=== PATIENT | male | born 1960 | race Caucasian/White ===

== ENCOUNTER 2022-12-11 09:23 | Observation (INO) ==
--- NOTE | 2022-12-11 09:38 | Emergency Department Note ---
Impression & Plan Brain TIA, Hypertension, Arm paresthesia, left ED Provider Note NAME: LIV HARDIN AGE: 62 SEX: M : 1960 ARRIVES VIA: Walk-In INFORMANT: Patient, ED PROVIDER(S): Agustin Steinberg MD CHIEF COMPLAINT: Left-sided facial and arm numbness MEDICAL DECISION MAKING: Patient presents due to concern for left-sided facial and arm numbness. IV was established blood work was obtained along with a CT of the head CT angiography of the head neck and EKG patient is currently asymptomatic. The patient's blood work shows a normal white count H&H and platelet count. Kidney function is unremarkable. BSG 162. Nonfasting. Sodium 135. Lyme is negative. The patient's CT of the head is negative. CT angiography of the head and neck shows dominant left vert with 70% stenosis of the proximal V2 segment at the level of C6. There is 50% stenosis bilaterally in the carotids. I did convey the findings to the patient was preferring to go home. ABCD 2 risk score of approximately 10% at 90 days. I did speak with on-call neurologist Dr. Su who agreed with plan of care which was a started the patient on antihypertensives, aspirin as well as statin medication. As I was preparing to discharge the patient the patient did have recurrence of his left upper extremity numbness. Given this concern he would like to stay in the hospital which I think is reasonable. The patient does not have any weakness or severe speech or facial droop. I did speak with the on-call hospitalist service Zack Brooks PA-C and the patient was admitted by Dr. Hernandez Prior /Outside records reviewed: None Differential diagnosis: Stroke, mini stroke, seizure, metabolic abnormality, infection, dehydration, hypo/hyperglycemia, electrolyte disturbance, anemia, hypoxia, cardiac sources, intracerebral event, toxicologic, neurologic, as well as other pathologies. Diagnostics, as interpreted by me: ECG: Normal sinus rhythm, rate of 68 normal intervals normal axis no ST elevations or T WI Cardiac monitoring: An order was placed for continuous cardiac monitoring. The monitor shows a rate of 72 with sinus rhythm. Patient was placed on pulse oximetry Medical decision rules: none Imaging studies: See below I informally reviewed the patient's CT of the head which shows no obvious evidence of ICH. HPI: Patient presents due to concern for numbness that he noted to the left side of his face as well as left upper extremity from the elbow down. The patient denies any prior history of TIA or stroke. No history of seizure. Patient denies any chest pains or shortness of breath. The patient did have mild left- sided headache about a week prior but has since resolved. Patient denies any blood thinner use. Patient states he is compliant with medications and has a known history of type 2 diabetes. Patient does drink 2 alcoholic beverages nightly. Patient does not binge drink. No tobacco or drug use. Patient states that his symptoms lasted approximately 20 to 30 minutes and have since resolved. Patient denies any slurred speech or facial droop. No confusion. The patient denies any abdominal pain nausea vomiting. No cough or fever. PAST MEDICAL HISTORY: See Below PAST SURGICAL HISTORY: See Below SOCIAL HISTORY: See Below HOME MEDICATIONS: See Below ALLERGIES: See Below VITALS: See Below PHYSICAL EXAMINATION: GENERAL: NAD, non-toxic. Wearing glasses. EYE EXAM: Normal conjunctiva. PERRL, no anisocoria and EOM's grossly intact w/o pain. NECK: Supple, no nuchal rigidity, no adenopathy, non-tender. No signs of meningismus. FROM of the neck with good chin to chest and neck extension. No stridor. LUNGS: Clear to auscultation. Normal chest wall mechanics. HEART: NSR, no MRG. ABDOMEN: Abdomen soft, non-tender, no masses, no rebound or guarding. BACK: No CVA TTP. SKIN: No rashes and no bruising. UPPER EXTREMITIES: Upper extremities are grossly normal. LOWER EXTREMITIES: Grossly normal, no edema. NEURO EXAM: A&O x3, cranial nerves II-XII grossly intact, normal speech, moves all 4 extremities. Good [id number], no drift and no sensory deficits Past Med/Surg History Medical History Allergic rhinitis Ascending aorta dilatation DM II (diabetes mellitus, type II), controlled HLD (hyperlipidemia) Hypertension Surgical History S/P repair of hydrocele Family History Other Cancer Heart disease Stroke Thyroid disorder Social History Smoking Status: Never smoker Hx Alcohol Use: Yes Feels Safe at Home: Yes Allergies Allergies Allergy/AdvReac Type Severity Reaction Status Date / Time No Known Allergies Allergy Unverified 12/11/22 13:10 Home Meds Home Medications Medication Instructions Recorded Confirmed empagliflozin 25 mg tablet 25 mg PO DAILY 12/11/22 12/11/22 (Jardiance) metformin 1,000 mg tablet 1,000 mg PO BID 12/11/22 12/11/22 Results & Data (ED) Vital Signs Vital Signs - 24 hr 12/11/22 09:25 12/11/22 09:42 12/11/22 12:50 Temperature 36.9 C Temperature Source Temporal Artery Scan Pulse Rate 85 77 Pulse Rate [Apical] 82 Respiratory Rate 18 18 Respiratory Effort / Characteristics Non-Labored Spontaneous Respiratory Depth Normal Respiratory Pattern Regular Blood Pressure 171/92 H Blood Pressure [Left Arm] 152/87 H Blood Pressure Mean 118 Blood Pressure Mean [Left Arm] 108 Blood Pressure Position Sitting Pulse Oximetry 97 97 Oxygen Delivery Method Room Air Room Air Sepsis Recent Fever Within 48 Hours No Sepsis New/Unexplained Change in Mental Status N/A Sepsis Action Taken by Nursing No Action Required Home Medications Current Medication List: was personally reviewed by me Laboratory Data Attestation: I reviewed the patient's lab results. 12/11/22 09:40 12/11/22 09:40 Lab Results 12/11/22 12/11/22 12/11/22 Range/Units 09:40 09:40 09:40 WBC 7.06 (4.8-10.8) K/ul RBC 5.19 (4.70-6.10) M/uL Hgb 16.1 (14.0-18.0) g/dl Hct 45.6 (42.0-52.0) % MCV 87.9 (80.0-100.0) fL MCH 31.0 (25.0-34.0) pg MCHC 35.3 (32.0-36.0) g/dL RDW Std Deviation 39.8 (36.4-46.3) fL RDW Coeff of Anjana 12.4 (11.5-14.5) % Plt Count 218 (130-400) K/uL MPV 10.5 (9.4-12.4) fL Immature Gran % (Auto) 0.3 % Neut % (Auto) 69.8 % Lymph % (Auto) 18.6 % Meeker % (Auto) 8.4 % Eos % (Auto) 1.6 % Baso % (Auto) 1.3 % Neut # (Auto) 4.94 (1.40-6.50) K/uL Lymph # (Auto) 1.31 (1.2-3.4) K/uL Meeker # (Auto) 0.59 (0.11-0.59) K/uL Eos # (Auto) 0.11 (0-0.50) K/uL Baso # (Auto) 0.09 (0-0.2) K/uL Immature Gran # (Auto) 0.02 (0.01-0.20) K/uL PT 10.2 (9.0-12.0) Seconds INR 1.0 (0.9-1.1) APTT 27.1 (21.0-31.0) Seconds PTT Ratio 1.0 Sodium 135 L (136-145) mmol/L Potassium 4.1 (3.5-5.1) mmol/L Chloride 104 (98-107) mmol/L Carbon Dioxide 23 (21-32) mmol/L Anion Gap 8 (3-11) BUN 9 (6-23) mg/dl Creatinine 0.71 (0.6-1.4) mg/dl Est Cr Clr Drug Dosing 107.9 ml/min Est GFR ( Amer) 116.5 ml/min Est GFR (Non-Af Amer) 100.6 ml/min BUN/Creatinine Ratio 12.7 (10-20) Glucose 162 H (70-99(Fasting)) mg/dl Calcium 9.0 (8.6-10.3) mg/dl Magnesium 2.1 (1.7-2.4) mg/dl Total Bilirubin 1.2 H (0.2-1.0) mg/dl AST 17 (13-39) U/L ALT 17 (7-52) U/L Alkaline Phosphatase 85 (34-104) U/L Troponin I High Sens 3.3 (0-20) pg/ml Total Protein 7.2 (6.0-8.3) gm/dl Albumin 4.4 (3.4-5.0) gm/dl Globulin 2.8 (2.5-4.0) gm/dl Albumin/Globulin Ratio 1.6 (0.9-2) Lyme Disease IgG Ab (Negative) Lyme Disease IgM Ab (Negative) SARS-CoV-2, RNA, NAAT (NEGATIVE) 12/11/22 12/11/22 Range/Units 09:40 12:45 WBC (4.8-10.8) K/ul RBC (4.70-6.10) M/uL Hgb (14.0-18.0) g/dl Hct (42.0-52.0) % MCV (80.0-100.0) fL MCH (25.0-34.0) pg MCHC (32.0-36.0) g/dL RDW Std Deviation (36.4-46.3) fL RDW Coeff of Anjana (11.5-14.5) % Plt Count (130-400) K/uL MPV (9.4-12.4) fL Immature Gran % (Auto) % Neut % (Auto) % Lymph % (Auto) % Meeker % (Auto) % Eos % (Auto) % Baso % (Auto) % Neut # (Auto) (1.40-6.50) K/uL Lymph # (Auto) (1.2-3.4) K/uL Meeker # (Auto) (0.11-0.59) K/uL Eos # (Auto) (0-0.50) K/uL Baso # (Auto) (0-0.2) K/uL Immature Gran # (Auto) (0.01-0.20) K/uL PT (9.0-12.0) Seconds INR (0.9-1.1) APTT (21.0-31.0) Seconds PTT Ratio Sodium (136-145) mmol/L Potassium (3.5-5.1) mmol/L Chloride (98-107) mmol/L Carbon Dioxide (21-32) mmol/L Anion Gap (3-11) BUN (6-23) mg/dl Creatinine (0.6-1.4) mg/dl Est Cr Clr Drug Dosing ml/min Est GFR ( Amer) ml/min Est GFR (Non-Af Amer) ml/min BUN/Creatinine Ratio (10-20) Glucose (70-99(Fasting)) mg/dl Calcium (8.6-10.3) mg/dl Magnesium (1.7-2.4) mg/dl Total Bilirubin (0.2-1.0) mg/dl AST (13-39) U/L ALT (7-52) U/L Alkaline Phosphatase (34-104) U/L Troponin I High Sens (0-20) pg/ml Total Protein (6.0-8.3) gm/dl Albumin (3.4-5.0) gm/dl Globulin (2.5-4.0) gm/dl Albumin/Globulin Ratio (0.9-2) Lyme Disease IgG Ab Negative (Negative) Lyme Disease IgM Ab Negative (Negative) SARS-CoV-2, RNA, NAAT NEGATIVE (NEGATIVE) Administered Medications Discontinued Medications Aspirin (Aspirin Chew 324 Mg) 324 mg PO NOW STA Stop: 12/11/22 12:39 Last Admin: 12/11/22 13:04 Dose: 324 mg Documented By: OL Atorvastatin Calcium (Atorvastatin 40 Mg Tab) 40 mg PO NOW STA Stop: 12/11/22 12:39 Last Admin: 12/11/22 13:20 Dose: Not Given Documented By: AM Atorvastatin Calcium (Atorvastatin 40 Mg Tab) 80 mg PO ONE ONE Stop: 12/11/22 13:22 Last Admin: 12/11/22 14:07 Dose: 80 mg Documented By: OL Ioversol (Optiray 320 500ml) 110 ml IV ONCE ONE Stop: 12/11/22 10:55 Last Admin: 12/11/22 10:54 Dose: 110 ml Documented By: EAB Imaging Data Radiologist's Impression: Head CT 12/11/22 09:47 CT head/brain wo con CLINICAL HISTORY: 62 years-old Male with neuro deficit, acute stroke suspected. Acute strokelike symptoms TECHNIQUE: Multiple axial CT images of the head were obtained without contrast. A dose lowering technique was utilized adhering to the principles of ALARA. CT DOSE: 1187.56 mGy.cm COMPARISON: None. FINDINGS: No acute intracranial hemorrhage, midline shift, intracranial mass, hydrocepha manoj, territorial ischemia or abnormal extra-axial collection. White matter hypodensities suggestive of probable chronic microvascular ischemic disease. Cerebral vascular calcifications. The calvarium is intact. The paranasal sinuses, mastoid air cells, and middle ear cavities are clear. IMPRESSION: No acute intracranial abnormality. ACT 112: Negative or not required by law. The above report was generated using voice recognition software. It may contain grammatical, syntax or spelling errors. Electronically signed by: Beto Guzman M.D. 12/11/2022 10:58 AM Head CTA 12/11/22 09:47 CT angio head w con CLINICAL HISTORY: 62 years-old Male with neuro deficit, acute stroke suspected. Acute strokelike symptoms COMPARISON STUDY: Head CT of same day TECHNIQUE: Following the IV administration of 110 cc of Optiray, CT angiogram of the brain was performed from the skull base to the vertex. Images are reviewed in the axial, sagittal, and coronal planes. 3-D MIPS images are created and assessed. IV contrast was administered without complication. All measurements were obtained according to NASCET criteria. A dose lowering technique was utilized adhering to the principles of ALARA. FINDINGS: CT ANGIOGRAM OF THE BRAIN: The imaged bilateral internal carotid arteries are patent. The bilateral anterior and middle cerebral arteries are also patent. The vertebrobasilar system and posterior cerebral arteries are widely patent. Dominant left vertebral artery. The right vertebral artery terminates in the PICA. There is no aneurysm, high-grade stenosis, or proximal branch occlusion identified. Dural sinuses appear patent. IMPRESSION: Unremarkable CTA of the head. ACT 112: Negative or not required by law. The above report was generated using voice recognition software. It may contain grammatical, syntax or spelling errors. Electronically signed by: Beto Guzman M.D. 12/11/2022 11:01 AM Neck CTA 12/11/22 09:47 CT angio neck with con CLINICAL HISTORY: 62 years-old Male with neuro deficit, acute stroke s uspected. Acute strokelike symptoms COMPARISON STUDY: CTA had of same day TECHNIQUE: Following the IV administration of 110 mL of Optiray, CT angiogram of the neck was performed from the aortic arch to the skull base. Images are reviewed in the axial, sagittal, and coronal planes. 3-D MIPS images are created and assessed. IV contrast was administered without complication. All measurements were calculated based on NASCET criteria. A dose lowering technique was utilized adhering to the principles of ALARA. FINDINGS: Three-vessel morphology of the thoracic aortic arch with mild atherosclerosis. Patency of the innominate and imaged subclavian arteries. Mild atherosclerosis of the patent common carotid arteries. Mild to moderate atherosclerotic plaque of the carotid bulbs and proximal cervical segments of the internal carotid arteries resulting in less than 50% stenosis. Dominant left vertebral artery with proximal tortuosity there is approximately 70% stenosis of the proximal V2 segment of the left vertebral artery at the level of C6 secondary to atherosc lerotic plaque. The developmentally diminutive right vertebral artery terminates into the PICA. Lung apices are clear. No pneumothorax. Unremarkable soft tissues. No acute fr acture. IMPRESSION: 1. Atherosclerotic plaque of the carotid bulbs results in less than 50% stenosis bilaterally. 2. Dominant left vertebral artery with atherosclerotic plaque within the V1 and V2 segments. There is approximately 70% stenosis of the proximal V2 segment at the level of C6. ACT 112: Negative or not required by law. The above report was generated using voice recognition software. It may contain grammatical, syntax or spelling errors. Electronically signed by: Beto Guzman M.D. 12/11/2022 11:29 AM Discharge Plan Visit Data Chief Complaint: TIA Symptoms Stated Complaint: LEFT SIDE FACIAL NUMBNESS, LEFT ARM TINGLING ED Provider: Agustin Steinberg Discharge Problem: Brain TIA, Hypertension, Arm paresthesia, left Patient Disposition: Admitted As Inpatient Condition: Good Discharge Instructions Interventions: ED Discharge Assessment Last Done: 12/11/22 15:48
[2022-12-11 10:30] LABS: Basophils # (auto) 0.09 K/uL (0-0.2); Basophils % (auto) 1.3 %; Eosinophils # (auto) 0.11 K/uL (0-0.50); Eosinophils % (auto) 1.6 %; Hematocrit (blood only) 45.6 % (42.0-52.0); Hemoglobin 16.1 g/dl (14.0-18.0); Immature Granulocytes # (auto) 0.02 K/uL (0.01-0.20); Immature Granulocytes % (auto) 0.3 %; Lymphocytes # (auto) 1.31 K/uL (1.2-3.4); Lymphocytes % (auto) 18.6 %; Mean Corpuscular Hgb Conc 35.3 g/dL (32.0-36.0); Mean Corpuscular Volume 87.9 fL (80.0-100.0); Mean Platelet Volume 10.5 fL (9.4-12.4); Monocytes # (auto) 0.59 K/uL (0.11-0.59); Monocytes % (auto) 8.4 %; Neutrophils # (auto) 4.94 K/uL (1.40-6.50); Neutrophils % (auto) 69.8 %; Platelet Count 218 K/uL (130-400); RDW Coefficient of Variation 12.4 % (11.5-14.5); RDW Standard Deviation 39.8 fL (36.4-46.3); Red Blood Count 5.19 M/uL (4.70-6.10); White Blood Count 7.06 K/ul (4.8-10.8)
[2022-12-11 10:34] LABS: Albumin Globulin Ratio 1.6 (0.9-2); Albumin Level 4.4 gm/dl (3.4-5.0); BUN Creatinine Ratio 12.7 (10-20); Bilirubin,Total 1.2 mg/dl (0.2-1.0); Creatinine Clr Calc Pharmacy 107.9 ml/min; Est GFR (African American) 116.5 ml/min; Est GFR (Non-African American) 100.6 ml/min; Globulin 2.8 gm/dl (2.5-4.0); Magnesium 2.1 mg/dl (1.7-2.4); Potassium 4.1 mmol/L (3.5-5.1); Total Protein 7.2 gm/dl (6.0-8.3)
[2022-12-11 10:40] LABS: Troponin I High Sensitivity 3.3 pg/ml (0-20)
[2022-12-11] MEDS ORDERED: OPTIRAY 320 500ml IV ONE (10:54)
--- NOTE | 2022-12-11 10:57 | Electrocardiogram Report ---
Test Reason : Blood Pressure : / mmHG Vent. Rate : 068 BPM Atrial Rate : 068 BPM P-R Int : 180 ms QRS Dur : 100 ms QT Int : 382 ms P-R-T Axes : 056 020 048 degrees QTc Int : 406 ms Normal sinus rhythm Normal ECG No previous ECGs available Confirmed by Jones Cabrera ([id number]) on 12/11/2022 10:57:17 AM Referred By: REFERRED SELF Confirmed By:Rylan Cabrera
--- NOTE | 2022-12-11 10:59 | CT Scan Report ---
CT head/brain wo con CLINICAL HISTORY: 62 years-old Male with neuro deficit, acute stroke suspected. Acute strokelike sym ptoms TECHNIQUE: Multiple axial CT images of the head were obtained without contrast. A dose lowering tech nique was utilized adhering to the principles of ALARA. CT DOSE: 1187.56 mGy.cm COMPARISON: None. FINDINGS: No acute intracranial hemorrhage, midline shift, intracranial mass, hydrocephalus, territorial ischem ia or abnormal extra-axial collection. White matter hypodensities suggestive of probable chronic micr ovascular ischemic disease. Cerebral vascular calcifications. The calvarium is intact. The paranasal sinuses, mastoid air cells, and middle ear cavities are clear . IMPRESSION: No acute intracranial abnormality. ACT 112: Negative or not required by law. The above report was generated using voice recognition software. It may contain grammatical, syntax o r spelling errors. Electronically signed by: Beto Guzman M.D. 12/11/2022 10:58 AM
[2022-12-11 11:02] LABS: Partial Thromboplastin Time 27.1 Seconds (21.0-31.0); Prothrombin Time 10.2 Seconds (9.0-12.0)
--- NOTE | 2022-12-11 11:02 | CT Scan Report ---
CT angio head w con CLINICAL HISTORY: 62 years-old Male with neuro deficit, acute stroke suspected. Acute strokelike s ymptoms COMPARISON STUDY: Head CT of same day TECHNIQUE: Following the IV administration of 110 cc of Optiray, CT angiogram of the brain was perfor med from the skull base to the vertex. Images are reviewed in the axial, sagittal, and coronal planes . 3-D MIPS images are created and assessed. IV contrast was administered without complication. All me asurements were obtained according to NASCET criteria. A dose lowering technique was utilized adherin g to the principles of ALARA. FINDINGS: CT ANGIOGRAM OF THE BRAIN: The imaged bilateral internal carotid arteries are patent. The bilateral anterior and middle cerebral arteries are also patent. The vertebrobasilar system and posterior cerebral arteries are widely herrmann nt. Dominant left vertebral artery. The right vertebral artery terminates in the PICA. There is no an eurysm, high-grade stenosis, or proximal branch occlusion identified. Dural sinuses appear patent. IMPRESSION: Unremarkable CTA of the head. ACT 112: Negative or not required by law. The above report was generated using voice recognition software. It may contain grammatical, syntax o r spelling errors. Electronically signed by: Beto Guzman M.D. 12/11/2022 11:01 AM
[2022-12-11 11:03] LABS: Lyme Ab IgG w/WB Rflx Negative (Negative); Lyme Ab IgM w/WB Rflx Negative (Negative)
--- NOTE | 2022-12-11 11:31 | CT Scan Report ---
CT angio neck with con CLINICAL HISTORY: 62 years-old Male with neuro deficit, acute stroke suspected. Acute strokelike s ymptoms COMPARISON STUDY: CTA had of same day TECHNIQUE: Following the IV administration of 110 mL of Optiray, CT angiogram of the neck was perform ed from the aortic arch to the skull base. Images are reviewed in the axial, sagittal, and coronal pl anes. 3-D MIPS images are created and assessed. IV contrast was administered without complication. Al l measurements were calculated based on NASCET criteria. A dose lowering technique was utilized adhe ring to the principles of ALARA. FINDINGS: Three-vessel morphology of the thoracic aortic arch with mild atherosclerosis. Patency of the innominate and imaged subclavian arteries. Mild atherosclerosis of the patent common c arotid arteries. Mild to moderate atherosclerotic plaque of the carotid bulbs and proximal cervical s egments of the internal carotid arteries resulting in less than 50% stenosis. Dominant left vertebral artery with proximal tortuosity there is approximately 70% stenosis of the proximal V2 segment of th e left vertebral artery at the level of C6 secondary to atherosclerotic plaque. The developmentally d iminutive right vertebral artery terminates into the PICA. Lung apices are clear. No pneumothorax. Unremarkable soft tissues. No acute fracture. IMPRESSION: 1. Atherosclerotic plaque of the carotid bulbs results in less than 50% stenosis bilaterally. 2. Dominant left vertebral artery with atherosclerotic plaque within the V1 and V2 segments. There is approximately 70% stenosis of the proximal V2 segment at the level of C6. ACT 112: Negative or not required by law. The above report was generated using voice recognition software. It may contain grammatical, syntax o r spelling errors. Electronically signed by: Beto Guzman M.D. 12/11/2022 11:29 AM
[2022-12-11] MEDS ORDERED: ATORVASTATIN 40 MG TAB PO STA (12:38)
[2022-12-11] MEDS ORDERED: ASPIRIN CHEW 324 MG PO STA (12:38)
--- NOTE | 2022-12-11 13:09 | History & Physical Report ---
Date of Service December 11, 2022 Assessment & Plan (1) Stroke-like symptom: Plan: - Admit to PCU for observation - Stroke order set completed, no indication for thrombolytic - CT head reviewed and is negative, CT angio of the neck shows Atherosclerotic plaque of the carotid bulbs results in less than 50% stenosis bilaterally. 2. Dominant left vertebral artery with atherosclerotic plaque within the V1 and V2 segments. There is approximately 70% stenosis of the proximal V2 segment at the level of C6. - MRI brain wo contrast ordered - Tele-neurology contacted by the ER- Recs aspirin and statin - Will allow permissive hypertension with SBP 140-170 - Neurology consulted - PT/OT consults placed - Allow diet if plassed bedside swallow evaluation - Checking echo - last was from 08/03/22 showing EF of 60-64%, left entricular diastolic function mildly abnormal, moderate aortic valve sclerosis is present, proximal ascending thoracic aorta is mildly enlarged at 4.1 cm. 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 - needs annual exam with diabetes (2) Hypertension: Plan: - Noted in outpatient chart but does not appear that he is on any medication - pt admits to being noncompliant with even baby aspirin - Will allow for permissive hypertension (3) HLD (hyperlipidemia): Plan: - Start atorvastatin 80 mg daily For plaque stabilization - check lipids with am labs (4) DM II (diabetes mellitus, type II), controlled: Plan: - ISS with accuchecks achs - Check A1C - Will hold metformin and jiardiance while here - Diet and exercise regimen were discussed with the patient at bedside (5) Ascending aorta dilatation: Plan: - Reviewed on last echo as above, repeat pending DVT ppx: teds, scds CODE; Full code Dispo: From home, lives with fiance, likely to remain in the hospital overnight. A total of 77 minutes were spent with greater than 50% of that time face to face with the patient, personally reviewing all current laboratories, imaging studies, past medication reconciliation, outpatient chart review, and discussion with specialists to collaborate care for the patient with attending. Please see attending documentation for corrections and/or additions. History of Present Illness Chief Complaint: Left arm and face numbness Primary Care Provider: Sam Hdz DO This is a 62-year-old male with PMHx of DM type II, ascending aortic dilation, HTN, HLD, GERD, allergic rhinitis who presents to the hospital with acute onset of left upper extremity numbness and left-sided facial numbness which occurred approximately 08:30AM today. This also involved left neck and jaw numbness, as well as not feeling well in general. He denies specific chest pain or shortness of breath during this event. It lasted about 10 minutes and then resolved by the time his co-worker got him to the ER. Similar sensation happened again this morning around 11:30A and lasted about 15 min, and is resolved at the time of my visit. He also mentions that he has had difficulty with picking up his 6-month-old grandson who weighs approximately ~20 pounds and states that he feels generalized fatigue compared to his baseline. He has not been exercising for the past 6 months. Previously liked to exercise with going on bike rides however has not been able to do so recently due to his schedule. He is a civil engineer in training and reports that at the time of his left hand/arm and jaw numbness this morning he had just read a very stressful email. He is overly stressed per his fiance who sits at bedside and supports the history. He reports having worsening left eye visual problem for the past 3 weeks not improving or worsening, no double vision or diplopia. He has a Left eye visual field deficit and for which has been present since 2009 when he was diagnosed with optic neuropathy. Pt admits to being noncompliant with medications such as baby aspirin which he was previously prescribed but takes intermittently. He also frequently forgets to take his evening dose of metformin. Allergies Allergy/AdvReac Type Severity Reaction Status Date / Time No Known Allergies Allergy Unverified 12/11/22 13:10 Home Medications Medication Instructions Recorded Confirmed Type empagliflozin 25 mg tablet 25 mg PO DAILY 12/11/22 12/11/22 History (Jardiance) metformin 1,000 mg tablet 1,000 mg PO BID 12/11/22 12/11/22 History Past Med/Surg History Medical History Allergic rhinitis Ascending aorta dilatation DM II (diabetes mellitus, type II), controlled HLD (hyperlipidemia) Hypertension Surgical History S/P repair of hydrocele Family History Other Cancer Heart disease Stroke Thyroid disorder Social History Smoking Status: Never smoker Hx Alcohol Use: Yes Alcohol type: beer Hx Substance Use: No Preferred Language: Chinese Communication Ability: Effective 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 Beliefs That Will Affect Care: None Current Living Situation: Alone Other Information That Helps Us Care for You: No Feels Safe at Home: Yes Safety Concerns: Feels Safe At This Time Assistive Devices: Glasses Review of Systems Review of Systems: Constitutional: No fever, sweats or chills Eyes: As per HPI ENT: normal hearing, no trouble swallowing Respiratory: No cough, sputum, dyspnea at rest or on exertion Cardiovascular: No chest pain, tightness or palpitations Abdomen: No pain, nausea, vomiting, diarrhea or constipation Musculoskeletal: No joint pain, calf pain, swelling Neurologic: As per HPI, No focal weakness, otherwise no numbness/tingling, or balance problems Psychiatric: No anxiety or depression Skin: No rash or itch Physical Exam Physical Exam: General: awake, alert, no apparent distress, thin Head: Normocephalic, atraumatic ENT: PERRL, EOMI, no pharyngeal exudate, mucous membranes moist Chest: Clear to auscultation, on room air, no adventitious breath sounds Cardiac: Regular rate and rhythm, no murmur, no JVD, normal peripheral pulses, good capillary refill Abdominal: NABS x 4 quadrants, soft, nondistended, nontender to palpation, no rebound or guarding Extremities: Normal inspection, no peripheral edema or erythema, calfs nontender to palpation Psych: Normal mood and affect Neuro: AAO x 3, CN II-XII are intact. Visual field deficit with left inferior field noted on exam with peripheral vision testing. Strength intact bilaterally and rated 5/5, no motor deficits, speech is clear, no peripheral sensory deficits, Neg pronator drift testing, negative [id number] testing, can perform rapid alternating movements, [id number] testing normal. Results & Data Results & Data Vital Signs (Past 12 Hours) Vital Signs Temp Pulse Pulse Resp BP BP Pulse Ox 12/11/22 12:50 82 18 152/87 H 97 12/11/22 09:42 77 12/11/22 09:25 36.9 C 85 18 171/92 H 97 O2 Del Method 12/11/22 12:50 Room Air 12/11/22 09:42 12/11/22 09:25 Room Air Laboratory Results 12/11/22 12/11/22 12/11/22 09:40 09:40 09:40 WBC RBC Hgb Hct MCV MCH MCHC RDW Std Deviation RDW Coeff of Anjana Plt Count MPV Immature Gran % (Auto) Neut % (Auto) Lymph % (Auto) [place] % (Auto) Eos % (Auto) Baso % (Auto) Neut # (Auto) Lymph # (Auto) [place] # (Auto) Eos # (Auto) Baso # (Auto) Immature Gran # (Auto) PT 10.2 INR 1.0 APTT 27.1 PTT Ratio 1.0 Sodium 135 L Potassium 4.1 Chloride 104 Carbon Dioxide 23 Anion Gap 8 BUN 9 Creatinine 0.71 Est Cr Clr Drug Dosing 107.9 Est GFR ( Amer) 116.5 Est GFR (Non-Af Amer) 100.6 BUN/Creatinine Ratio 12.7 Glucose 162 H Calcium 9.0 Magnesium 2.1 Total Bilirubin 1.2 H AST 17 ALT 17 Alkaline Phosphatase 85 Troponin I High Sens 3.3 Total Protein 7.2 Albumin 4.4 Globulin 2.8 Albumin/Globulin Ratio 1.6 Lyme Disease IgG Ab Negative Lyme Disease IgM Ab Negative 12/11/22 09:40 WBC 7.06 RBC 5.19 Hgb 16.1 Hct 45.6 MCV 87.9 MCH 31.0 MCHC 35.3 RDW Std Deviation 39.8 RDW Coeff of Anjana 12.4 Plt Count 218 MPV 10.5 Immature Gran % (Auto) 0.3 Neut % (Auto) 69.8 Lymph % (Auto) 18.6 [place] % (Auto) 8.4 Eos % (Auto) 1.6 Baso % (Auto) 1.3 Neut # (Auto) 4.94 Lymph # (Auto) 1.31 [place] # (Auto) 0.59 Eos # (Auto) 0.11 Baso # (Auto) 0.09 Immature Gran # (Auto) 0.02 PT INR APTT PTT Ratio Sodium Potassium Chloride Carbon Dioxide Anion Gap BUN Creatinine Est Cr Clr Drug Dosing Est GFR ( Amer) Est GFR (Non-Af Amer) BUN/Creatinine Ratio Glucose Calcium Magnesium Total Bilirubin AST ALT Alkaline Phosphatase Troponin I High Sens Total Protein Albumin Globulin Albumin/Globulin Ratio Lyme Disease IgG Ab Lyme Disease IgM Ab Diagnostic Findings Head CT 12/11/22 09:47 CT head/brain wo con CLINICAL HISTORY: 62 years-old Male with neuro deficit, acute stroke suspected. Acute strokelike symptoms TECHNIQUE: Multiple axial CT images of the head were obtained without contrast. A dose lowering technique was utilized adhering to the principles of ALARA. CT DOSE: 1187.56 mGy.cm COMPARISON: None. FINDINGS: No acute intracranial hemorrhage, midline shift, intracranial mass, hydrocephalus, territorial ischemia or abnormal extra-axial collection. White ma tter hypodensities suggestive of probable chronic microvascular ischemic disease. Cerebral vascular calcifications. The calvarium is intact. The paranasal sinuses, mastoid air cells, and middle ear cavities are clear. IMPRESSION: No acute intracranial abnormality. ACT 112: Negative or not required by law. The above report was generated using voice recognition software. It may contain grammatical, syntax or spelling errors. Electronically signed by: Beto Guzman M.D. 12/11/2022 10:58 AM Head CTA 12/11/22 09:47 CT angio head w con CLINICAL HISTORY: 62 years-old Male with neuro deficit, acute stroke suspected. Acute strokelike symptoms COMPARISON STUDY: Head CT of same day TECHNIQUE: Following the IV administration of 110 cc of Optiray, CT angiogram of the brain was performed from the skull base to the vertex. Images are reviewed in the axial, sagittal, and coronal planes. 3-D MIPS images are created and assessed. IV contrast was administered without complication. All measurements were obtained according to NASCET criteria. A dose lowering technique was utilized adhering to the principles of ALARA. FINDINGS: CT ANGIOGRAM OF THE BRAIN: The imaged bilateral internal carotid arteries are patent. The bilateral anterior and middle cerebral arteries are also patent. The vertebrobasilar system and posterior cerebral arteries are widely patent. Dominant left vertebral artery. The right vertebral artery terminates in the PICA. There is no aneurysm, high-grade stenosis, or proximal branch occlusion identified. Dural sinuses appear patent. IMPRESSION: Unremarkable CTA of the head. ACT 112: Negative or not required by law. The above report was generated using voice recognition software. It may contain grammatical, syntax or spelling errors. Electronically signed by: Beto Guzman M.D. 12/11/2022 11:01 AM Neck CTA 12/11/22 09:47 CT angio neck with con CLINICAL HISTORY: 62 years-old Male with neuro deficit, acute stroke suspected. Acute strokelike symptoms COMPARISON STUDY: CTA had of same day TECHNIQUE: Following the IV administration of 110 mL of Optiray, CT angiogram of the neck was performed from the aortic arch to the skull base. Images are reviewed in the axial, sagittal, and coronal planes. 3-D MIPS images are created and assessed. IV contrast was administered without complication. All measurements were calculated based on NASCET criteria. A dose lowering technique was utilized adhering to the principles of ALARA. FINDINGS: Three-vessel morphology of the thoracic aortic arch with mild atherosclerosis. Patency of the innominate and imaged subclavian arteries. Mild atherosclerosis of the patent common carotid arteries. Mild to moderate atherosclerotic plaque of the carotid bulbs and proximal cervical segments of the internal carotid arteries resulting in less than 50% stenosis. Dominant left vertebral artery with proximal tortuosity there is approximately 70% stenosis of the proximal V2 segment of the left vertebral artery at the level of C6 secondary to atherosclerotic plaque. The developmentally diminutive right vertebral artery terminates into the PICA. Lung apices are clear. No pneumothorax. Unremarkable soft tissues. No acute fracture. IMPRESSION: 1. Atherosclerotic plaque of the carotid bulbs results in less than 50% stenosis bilaterally. 2. Dominant left vertebral artery with atherosclerotic plaque within the V1 and V2 segments. There is approximately 70% stenosis of the proximal V2 segment at the level of C6. ACT 112: Negative or not required by law. The above report was generated using voice recognition software. It may contain grammatical, syntax or spelling errors. Electronically signed by: Beto Guzman M.D. 12/11/2022 11:29 AM Code Status & VTE Plan Code Status FULL code Supervising Physician Co-Signing Physician Notes Patient was seen and examined independently. Chart reviewed. Case discussed with ALEXIA
[2022-12-11] MEDS ORDERED: ATORVASTATIN 40 MG TAB PO ONE (13:21)
[2022-12-11] MEDS ORDERED: DEXTROSE 50% 50 ML SYRINGE IV PRN (17:10)
[2022-12-11] MEDS ORDERED: GLUCAGON FOR INJ 1 MG VIAL SQ PRN (17:10)
[2022-12-11] MEDS ORDERED: PHARMACIST DISCHARGE MED REC CONSULT PRN (17:10)
[2022-12-11] MEDS ORDERED: GLUCOSE 10 TAB/TUBE PO PRN (17:10)
[2022-12-11] MEDS ORDERED: CARBOHYDRATES FOR HYPOGLYCEMIA PO PRN (17:10)
[2022-12-11] MEDS ORDERED: GLUCOSE 40% GEL 15 GM TUBE PO PRN (17:10)
[2022-12-11] MEDS: INSULIN ASPART PER UNIT CHARGE SC SCH ×2 (17:30→21:00)
--- NOTE | 2022-12-11 22:22 | Magnetic Resonance Report ---
Exam(s): MRI HEAD Without Contrast EXAM: MR Head Without Intravenous Contrast CLINICAL HISTORY: Reason for exam: r/o cva. TECHNIQUE: Magnetic resonance images of the head/brain without intravenous contrast in multiple planes. COMPARISON: Comparison made to prior noncontrast head CT from December 11, 2022. FINDINGS: Brain: Mild nonspecific white matter changes. The flow voids at the base of the brain are intact. No mass. No hemorrhage. No acute infarct. Ventricles: Unremarkable. No ventriculomegaly. Bones/joints: Unremarkable. Sinuses: Unremarkable as visualized. No acute sinusitis. Mastoid air cells: Unremarkable as visualized. No mastoid effusion. Orbits: Unremarkable as visualized. IMPRESSION: No evidence of acute intra-Pathology. Mild nonspecific white matter changes. Electronically signed by: Corrina Alvarado MD 12/11/22 22:22 PM
[2022-12-12 07:46] LABS: Basophils # (auto) 0.07 K/uL (0-0.2); Eosinophils # (auto) 0.13 K/uL (0-0.50); Eosinophils % (auto) 1.9 %; Hematocrit (blood only) 43.5 % (42.0-52.0); Hemoglobin 15.7 g/dl (14.0-18.0); Immature Granulocytes # (auto) 0.01 K/uL (0.01-0.20); Immature Granulocytes % (auto) 0.1 %; Lymphocytes # (auto) 1.19 K/uL (1.2-3.4); Lymphocytes % (auto) 17.2 %; Mean Corpuscular Hemoglobin 31.2 pg (25.0-34.0); Mean Corpuscular Hgb Conc 36.1 g/dL (32.0-36.0); Mean Corpuscular Volume 86.5 fL (80.0-100.0); Mean Platelet Volume 10.4 fL (9.4-12.4); Monocytes # (auto) 0.56 K/uL (0.11-0.59); Monocytes % (auto) 8.1 %; Neutrophils # (auto) 4.94 K/uL (1.40-6.50); Neutrophils % (auto) 71.7 %; Platelet Count 198 K/uL (130-400); RDW Coefficient of Variation 12.4 % (11.5-14.5); RDW Standard Deviation 39.3 fL (36.4-46.3); Red Blood Count 5.03 M/uL (4.70-6.10)
[2022-12-12 07:57] LABS: BUN Creatinine Ratio 17.3 (10-20); Calcium 8.5 mg/dl (8.6-10.3); Chol HDL Ratio 4.3 (0-5); Creatinine Clr Calc Pharmacy 105.4 ml/min; Est GFR (African American) 113.9 ml/min; Est GFR (Non-African American) 98.3 ml/min; Potassium 4.2 mmol/L (3.5-5.1)
[2022-12-12] MEDS ORDERED: ATORVASTATIN 40 MG TAB PO SCH (09:00)
[2022-12-12] MEDS ORDERED: ASPIRIN 81 MG ECTAB PO SCH (09:00)
[2022-12-12] MEDS: INSULIN ASPART PER UNIT CHARGE SC SCH ×2 (09:10→12:54)
[2022-12-12 09:30] LABS: Estimated Average Glucose 177 mg/dl; Hemoglobin A1C 7.8 % (4.5-5.6)
--- NOTE | 2022-12-12 10:30 | Neurology Consultation ---
Date of Consultation December 12, 2022 Assessment & Plan (1) Stroke-like symptom: Plan NEUROLOGY CONSULTATION Assessment & Plan: Impression: pt with likely TIA event with minimal symptoms and left hand numbness and lip. questionable cause for left hand numbness, that may be peripheral in nature (e.g. CTS). left lip numbness however likely TIA symptom. currently doing well. mri brain negative. Recommendations: -ok for discharge from neuro stand point. no need for permissive HTN. ASA for now, no clear need for DAPT given no intracranial stenosis and low ABCD2 score. statin and LDL goal less than 70. strict DM control. call again if question. will sign off. Dr. Paul Jones MD [facility] Neurology Chief Complaint: numbness History of Present Illness: pt with essentially resolved left lip and hand numbness. left hand numbness is mostly on 1st and 2nd digits. no weakness. mri brain negative. CTA without LVO. noted for left vertebral stenosis. this morning feeling well and wants to go home. Admission/Initial HPI documentation:This is a 62-year-old male with PMHx of DM type II, ascending aortic dilation, HTN, HLD, GERD, allergic rhinitis who presents to the hospital with acute onset of left upper extremity numbness and left-sided facial numbness which occurred approximately 08:30AM today. This also involved left neck and jaw numbness, as well as not feeling well in general. He denies specific chest pain or shortness of breath during this event. It lasted about 10 minutes and then resolved by the time his co-worker got him to the ER. Similar sensation happened again this morning around 11:30A and lasted about 15 min, and is resolved at the time of my visit. He also mentions that he has had difficulty with picking up his 6-month-old grandson who weighs approximately ~20 pounds and states that he feels generalized fatigue compared to his baseline. He has not been exercising for the past 6 months. Previously liked to exercise with going on bike rides however has not been able to do so recently due to his schedule. 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 He is overly stressed per his fiance who sits at bedside and supports the history. He reports having worsening left eye visual problem for the past 3 weeks not improving or worsening, no double vision or diplopia. He has a Left eye visual field deficit and for which has been present since 2009 when he was diagnosed with optic neuropathy. Pt admits to being noncompliant with medications such as baby aspirin which he was previously prescribed but takes intermittently. He also frequently forgets to take his evening dose of metformin. Past Medical History: See chart Meds: See chart I personally reviewed all of the medications Social & Family History: See chart Review of Systems: Per initial HPI on admission. Physical Exam: GEN: NAD HEENT: Normocephalic Neuro: Mental status:A & O x 3.No dysarthria or aphasia.No neglect. Fluent speech. No apraxia Cranial Nerves:II-XII intact Motor:Normal bulk and tone,5/5 strength x 4 extremities Coordination:Intact FTN testing Reflexes:+2 throughout, down going toes janay Sensation: Intact x 4 extremities to touch with only slight decrease to touch left distal 1st and 2nd digits. Gait:intact Chart reviewed I have spent more than 50% educating patient about potential diagnosis and neurological evaluation and coordinating care with patient's treatment team. Total time spent (including chart review and coordination of care): 80 min (this includes chart review). History of Present Illness Attending Physician: Rahel Walker, Allergies Allergy/AdvReac Type Severity Reaction Status Date / Time No Known Allergies Allergy Unverified 12/11/22 13:10 Home Medications Medication Instructions Recorded Confirmed Type empagliflozin 25 mg tablet 25 mg PO DAILY 12/11/22 12/11/22 History (Jardiance) metformin 1,000 mg tablet 1,000 mg PO BID 12/11/22 12/11/22 History Patient History Medical History Allergic rhinitis Ascending aorta dilatation DM II (diabetes mellitus, type II), controlled HLD (hyperlipidemia) Hypertension Surgical History S/P repair of hydrocele Family History Other Cancer Heart disease Stroke Thyroid disorder Social History Smoking Status: Never smoker Hx Alcohol Use: Yes Alcohol type: beer Hx Substance Use: No Preferred Language: [place] Islander Communication Ability: Effective Svp Marketing Required: No Beliefs That Will Affect Care: None Current Living Situation: Alone Other Information That Helps Us Care for You: No Feels Safe at Home: Yes Safety Concerns: Feels Safe At This Time Assistive Devices: Glasses Results & Data Vital Signs (Past 12 Hours) Vital Signs Temp Pulse Pulse Resp BP BP Pulse Ox 12/12/22 08:00 97 H 12/12/22 08:11 36.5 C 69 18 146/76 H 95 12/12/22 03:20 36.8 C 64 18 148/77 H 94 12/11/22 23:43 36.7 C 62 18 127/66 96 12/11/22 23:51 66 O2 Del Method 12/12/22 08:00 12/12/22 08:11 Room Air 12/12/22 03:20 Room Air 12/11/22 23:43 Room Air 12/11/22 23:51
--- NOTE | 2022-12-12 13:14 | Discharge Summary ---
Discharge Summary Date of Service December 12, 2022 Notes For Next Care Provider Medication Changes From Visit NEW aspirin NEW atorvastatin Admission HPI Per Admitting Provider This is a 62-year-old male with PMHx of DM type II, ascending aortic dilation, HTN, HLD, GERD, allergic rhinitis who presents to the hospital with acute onset of left upper extremity numbness and left-sided facial numbness which occurred approximately 08:30AM today. This also involved left neck and jaw numbness, as well as not feeling well in general. He denies specific chest pain or shortness of breath during this event. It lasted about 10 minutes and then resolved by the time his co-worker got him to the ER. Similar sensation happened again this morning around 11:30A and lasted about 15 min, and is resolved at the time of my visit. He also mentions that he has had difficulty with picking up his 6-month-old grandson who weighs approximately ~20 pounds and states that he feels generalized fatigue compared to his baseline. He has not been exercising for the past 6 months. Previously liked to exercise with going on bike rides however has not been able to do so recently due to his schedule. He is a civil design specialist and reports that at the time of his left hand/arm and jaw numbness this morning he had just read a very stressful email. He is overly stressed per his fiance who sits at bedside and supports the history. He reports having worsening left eye visual problem for the past 3 weeks not improving or worsening, no double vision or diplopia. He has a Left eye visual field deficit and for which has been present since 2009 when he was diagnosed with optic neuropathy. Pt admits to being noncompliant with medications such as baby aspirin which he was previously prescribed but takes intermittently. He also frequently forgets to take his evening dose of metformin. Principal Dx & Hospital Course #1 = Principal Diagnosis (1) Stroke-like symptom: - Admitted to PCU for observation - Stroke order set completed, no indication for thrombolytic - CT head reviewed and is negative, CT angio of the neck shows Atherosclerotic plaque of the carotid bulbs results in less than 50% stenosis bilaterally. 2. Dominant left vertebral artery with atherosclerotic plaque within the V1 and V2 segments. There is approximately 70% stenosis of the proximal V2 segment at the level of C6. - MRI brain revealed mild nonspecific white matter changes and no specific intracranial pathology. 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 - needs annual exam with diabetes (2) Brain TIA: (3) Hypertension: - Noted in outpatient chart but does not appear that he is on any medication - pt admits to being noncompliant with even baby aspirin - Will allow for permissive hypertension (4) HLD (hyperlipidemia): - Start atorvastatin 80 mg daily For plaque stabilization - check lipids with am labs (5) DM II (diabetes mellitus, type II), controlled: - ISS with accuchecks achs - Check A1C - Will hold metformin and jiardiance while here - Diet and exercise regimen were discussed with the patient at bedside (6) Ascending aorta dilatation: - Reviewed on last echo as above, repeat pending (7) PFO (patent foramen ovale): Small PFO noted on echo. Low risk RoPE score of 3, low risk of PFO contributing to stroke. Cont management as noted above. Would recommend additional followup with neurology in 4-6 weeks for definitive plan. Discharge Exam alert and oriented mentating and ambulating at baseline. oxygenating well on room air no gross focal neurologic deficit. Updated Medication List Medication Instructions Recorded Confirmed Type empagliflozin 25 mg tablet 25 mg PO DAILY 12/11/22 12/11/22 History (Jardiance) metformin 1,000 mg tablet 1,000 mg PO BID 12/11/22 12/11/22 History aspirin 81 mg tablet,delayed 81 mg PO QAM #90 tabs 12/12/22 Rx release atorvastatin 40 mg tablet 40 mg PO HS #30 tabs 12/12/22 Rx Hospital Stay Data Consultations 12/11/22 12:38 ED Decision to Admit Stat 12/11/22 17:10 Consult Neurology Routine Diagnostic Imagining Performed 12/11/22 09:47 CT angio head w con Stat CT angio neck with con Stat CT head/brain wo con Stat 12/11/22 17:10 MR brain wo con Routine Pending Results Patient Have Any Pending Studies at Discharge: No Discharge Instructions Given to Patient (Per Discharging Provider) Please take all medications as instructed on discharge list below. It was possible that your symptoms may have been consistent with a TIA (transient ischemic attack, or "ministroke"). Neurology recommends that you take a baby aspirin (81mg) daily and a daily cholesterol medication "statin." This will help to prevent stroke in the future. It is recommended that you follow-up with your primary care physician in one week to touch base on how things are going after leaving the hospital. It was a pleasure taking care of you! Please call if you have any questions or problems. You can reach a [facility] hospitalist on duty at [facility] 24 hours a day by calling [phone]. Take care of yourself. Rahel Walker, [facility] Hospitalist Total Time Total Time Spent Total Time Spent (In Minutes): 60
--- NOTE | 2022-12-12 15:01 | Pharmacy Report ---
- Date of Service December 12, 2022 - Pharmacy CVA/TIA Medication Review Medications to Prevent Stroke handout has been added to the patients discharge packet. Antiplatelet(s) * Aspirin 81 mg Cholesterol * High intensity statin: atorvastatin 40 mg Therapeutic Anticoagulation * No history of Afib/Aflutter noted Type 2 Diabetes * Patient has T2DM and patient is prescribed Jardiance and metformin
[2022-12-12] MEDS ORDERED: STROKE PATIENT DISCHARGE STA (15:54)
--- NOTE | 2022-12-13 11:34 | Pharmacy Report ---
Pharmacist Stroke Counseling - Date of Service December 13, 2022 - Scope: Pharmacy has been consulted to provide medication discharge counseling for this patient admitted with [ischemic stroke] [hemorrhagic stroke] [transient ischemic attack] as per the Pharmacist Discharge Counseling for Stroke Patients [employer] . - Medications on Discharge: Home Medications Medication Instructions Recorded Confirmed empagliflozin 25 mg tablet 25 mg PO DAILY 12/11/22 12/11/22 (Jardiance) metformin 1,000 mg tablet 1,000 mg PO BID 12/11/22 12/11/22 New Rx's Medication Instructions Recorded aspirin 81 mg tablet,delayed 81 mg PO QAM #90 tabs 12/12/22 release atorvastatin 40 mg tablet 40 mg PO HS #30 tabs 12/12/22 - Action: The above medications, specifically ones for stroke treatment/prophylaxis, have been reviewed in detail with the patient and/or patient business center representative(s) prior to discharge. This includes indication, common adverse reactions, drug interactions, and medication administration. Medication counseling has been employed using the teach-back method to ensure understanding. - Outcome: The patient and/or patient business center representative(s) have demonstrated understanding of the medications. Additional comments: Spoke with patient over the phone regarding medication changes on discharge. Patient very knowledgeable about medications. He reports he is doing well and has no questions. He is aware to bring an updated medication list with him to his doctors visit next week. No other pertinent positives on interview. Thank you for allowing pharmacy to be involved in the care of this patient. Please call [phone] with any additional questions
== END 2022-12-12 16:53 | disposition home or self-care (01) ==
LOC: ED 09:23 → EDINP 09:23 → SUATTDRO 15:18 → EDINP 15:48 → 4W 18:27

== ENCOUNTER 2024-02-06 15:22 | Inpatient (IN) ==
--- NOTE | 2024-02-06 15:35 | ED Triage Note ---
Date of Service February 06, 2024 Provider in Triage Author: Jus Gerard History of Present Illness This patient was briefly evaluated while in triage. An abbreviated physical exam was performed. This patient is a 64-year-old Male who presents to the ED for evaluation of dizziness this week, N/T in left side of his face since last week, N/T in left fingers seen at [facility] and sent here hx of "mini stroke" 11/2022 Physical Exam GENERAL: NAD CARDIOVASCULAR: RRR RESPIRATORY: CTA NEURO: normal gait, speech clear, no facial droop Initial orders for labs and / or imaging were placed and patient was placed in the waiting area until a bed is available. Please see further documentation for the full ED course.
[2024-02-06 16:12] LABS: Basophils # (auto) 0.07 K/uL (0.00-0.20); Basophils % (auto) 0.8 %; Eosinophils # (auto) 0.18 K/uL (0.00-0.50); Hematocrit (blood only) 43.9 % (42.0-52.0); Hemoglobin 15.5 g/dl (14.0-18.0); Immature Granulocytes # (auto) 0.01 K/uL (0.01-0.20); Immature Granulocytes % (auto) 0.1 %; Lymphocytes # (auto) 1.91 K/uL (1.20-3.40); Lymphocytes % (auto) 21.6 %; Mean Corpuscular Hemoglobin 30.6 pg (25.0-34.0); Mean Corpuscular Hgb Conc 35.3 g/dL (32.0-36.0); Mean Corpuscular Volume 86.6 fL (80.0-100.0); Mean Platelet Volume 10.1 fL (9.4-12.4); Monocytes # (auto) 0.65 K/uL (0.11-0.59); Monocytes % (auto) 7.3 %; Neutrophils # (auto) 6.04 K/uL (1.40-6.50); Neutrophils % (auto) 68.2 %; Platelet Count 194 K/uL (130-400); RDW Coefficient of Variation 12.6 % (11.5-14.5); RDW Standard Deviation 39.4 fL (36.4-46.3); Red Blood Count 5.07 M/uL (4.70-6.10); White Blood Count 8.86 K/ul (4.8-10.8)
[2024-02-06 16:30] LABS: Alanine Aminotransferase 14 U/L (7-52); Albumin Globulin Ratio 1.5 (0.9-2); Albumin Level 4.6 gm/dl (3.4-5.0); Alkaline Phosphatase 76 U/L (34-104); Anion Gap 7 (3-11); Aspartate Aminotransferase 16 U/L (13-39); BUN Creatinine Ratio 23.4 (10-20); Bilirubin,Total 1.4 mg/dl (0.2-1.0); Blood Urea Nitrogen 18 mg/dl (6-23); Calcium 9.7 mg/dl (8.6-10.3); Carbon Dioxide 24 mmol/L (21-32); Chloride 104 mmol/L (98-107); Creatinine Clr Calc Pharmacy 100.1 ml/min; Est GFR (African American) 111.2 ml/min; Est GFR (Non-African American) 95.9 ml/min; Glucose 146 mg/dl (70-99(Fasting)); Magnesium 2.3 mg/dl (1.7-2.4); Sodium 135 mmol/L (136-145); Total Protein 7.6 gm/dl (6.0-8.3)
[2024-02-06 16:36] LABS: Troponin I High Sensitivity < 2.3 pg/ml (0-20)
[2024-02-06 16:42] LABS: INR 0.9 (0.9-1.1); Partial Thromboplastin Time 27 Seconds (21-31); Prothrombin Time 10.3 Seconds (9.0-12.0)
[2024-02-06] MEDS: OPTIRAY 320 150ml IV ONE (17:01)
--- NOTE | 2024-02-06 17:21 | CT Scan Report ---
CT angio neck with con, CT head/brain wo con, CT angio head w con CLINICAL HISTORY: dizziness, hx of TIA TECHNIQUE: Contiguous axial CT images of the head were acquired from the base of the skull to the momo aliza without intravenous contrast administration. CT angiography of the head and neck was performed f ollowing intravenous administration of iodinated contrast. Coronal and sagittal MIPS were obtained fr om the axial data set and were submitted for review. Automated dose lowering techniques and/or adjus tment according to patient size were utilized for this examination. All measurements were calculated based on NASCET criteria. CT DOSE: 1113.63 mGy.cm Comparison: Comparison is made to CT head and neck 02/06/2024 FINDINGS: CT head: There is no acute intracranial hemorrhage or evidence of acute territorial infarction. No sh ift of the midline structures, mass effect, or extra-axial abnormalities are shown. Lungs and soft tissues are unremarkable. CTA Neck: A 3 vessel aortic arch is shown. Atherosclerotic plaque is present in the aortic arch and at the origin of the great vessels. Redemonstration of approximately 70% stenosis of the left vertebr al artery. Right vertebral artery terminates as PICA. The left vertebral artery is dominant. CTA Head: The anterior and posterior cerebral circulations are patent. No hemodynamically significan t stenosis, aneurysm, dissection, or arteriovenous malformation is shown. IMPRESSION: 1. No acute intracranial hemorrhage, evidence of acute territorial infarction, or other acute intrac ranial disease process. 2. Again noted is approximately 70% stenosis of the proximal V2 segment of the left vertebral. 3. No occlusion, hemodynamically significant stenosis, aneurysm, dissection, or arteriovenous malfor mation in the major intracranial arteries. Assessment of stenosis of the internal carotid arteries is based on NASCET criteria. ACT 112: Negative or not required by law. Electronically signed by: Rinku Diaz M.D. 02/06/2024 5:20 PM
--- NOTE | 2024-02-06 17:42 | Emergency Department Note ---
Impression & Plan Left sided numbness, Dizziness, Acute CVA (cerebrovascular accident) ED Provider Note NAME: LIV HARDIN AGE: 64 SEX: M : 1960 ARRIVES VIA: Walk-In INFORMANT: [Patient] ED PROVIDER(S): [Regis Garcia MD] CHIEF COMPLAINT: Dizziness HISTORY OF PRESENT ILLNESS: The patient is a 64-year-old male with a history of previous CVA. The patient states that his stroke symptoms previously involved some numbness to the left face and left hand. Those symptoms eventually with time went away. In the last week, he has had recurrence of the numbness in the face and left hand. He states he has also noticed some dizziness with position change. The patient is under some increased stress right now as he just moved. His significant other does not believe he is keeping up with fluids. The patient went to the urgent care center today and was referred to the ER for the possibility of new CVA. The patient does not have fever, there has been no cough or congestion. No chest pain or shortness of breath. He states that he does have urinary urgency but this is chronic. He has not noticed any symptoms that would suggest UTI, he has no history of UTI. PMHx/PSHx/Social Hx: See Below PHYSICAL EXAM: GENERAL: Patient is in no acute distress. HEENT: No acute trauma, normocephalic atraumatic, mucous membranes moist, no nasal congestion. NECK: No stridor, no adenopathy, no meningismus, trachea is midline. LUNGS: Clear to auscultation bilaterally, no wheeze, no rhonchi, breath sounds equal. HEART: Without murmurs gallops or rubs, regular rate and rhythm. ABDOMEN: Soft, nontender, no peritonitis. EXTREMITIES: No cyanosis, full range of motion of all the joints without pain or difficulty. NEUROLOGIC: Oriented x 3, no focal weakness. No speech slur or extremity drift, excellent historian. No acute cerebellar deficit. No facial droop SKIN: No jaundice, no diaphoresis. DIFFERENTIAL DIAGNOSIS: CVA, dehydration, anemia, electrolyte imbalance, dysrhythmia, UTI, among others EMERGENCY DEPARTMENT PROCEDURES: MEDICAL DECISION MAKING: There is no leukocytosis or concerning anemia. There is a normal platelet count. No coagulopathy. No renal failure or significant electrolyte abnormality. No concerning liver enzyme elevation. The patient appeared to be in a euthyroid state. ECG showed a sinus rhythm, no ischemia or dysrhythmia. Cardiac enzyme testing x 1 was not consistent with acute cardiac injury. Urinalysis showed some potential dehydration, no infection. Brain CT showed no acute bleed or mass effect. CT angio of the head and neck were performed. He did have some stenosis but no clot seen. His imaging appeared similar to previous CT imaging. MRI of the brain did show a new CVA. On my exam, there were no focal motor deficits, no speech slur. The patient presented with a week of symptoms. He was clearly not a TNK candidate. The patient was found to have a CVA on MRI. This certainly could explain his complaints. With the new CVA, with his week of symptoms, I do think the patient a deserves a hospital stay, further workup. The patient admits that he does not always take his medications as prescribed, this certainly could be part of the issue. During the patient stay, he was given a liter of IV saline for hydration, he was given 4 baby aspirin. I spoke with case management, the on-call hospitalist was consulted. Prior/Outside records/notes reviewed: Today's notes from the urgent care center describing his presentation and the need for an ER workup. ECG per my interpretation: Indication was weakness and dizziness. The ECG shows a normal sinus rhythm with a rate of 68. There is an old septal infarct. There is no acute ST elevation, no PVCs. The QTc is 404. Continuous Cardiac Monitoring per my interpretation: An order was placed for continuous cardiac monitoring. The monitor shows a rate of 64 with normal sinus rhythm. Imaging/x-ray results per my interpretation: Chronic Medical/Social conditions affecting care: History of previous CVA. Care/Management discussed with: Case management, the on-call hospitalist. Level of care consideration(s): After review of the information above and other included data: --I believe the patient requires escalation of care to admission Critical Care Note: I have personally spent 46 minutes of critical care time in the direct management of this patient. This includes bedside care, interpretation of diagnostic studies, and testing, discussion with consultants, patient, and family members, and other required patient management activities. This 46 minutes is in excess of all separately billable procedures. DISPOSITION: Admission Past Med/Surg History Problem List (Updated 02/06/24 @ 22:55 by Regis Garcia MD) Acute CVA (cerebrovascular accident) (Acute) Dizziness (Acute) Left sided numbness (Acute) PFO (patent foramen ovale) Stroke-like symptom Hypertension (Acute) Ascending aorta dilatation HLD (hyperlipidemia) Allergic rhinitis DM II (diabetes mellitus, type II), controlled Brain TIA (Acute) Medical History Arm paresthesia, left Surgical History S/P repair of hydrocele Family History Other Cancer Heart disease Stroke Thyroid disorder Social History Smoking Status: Never smoker Hx Alcohol Use: Yes Alcohol type: beer Hx Substance Use: No Preferred Language: American Communication Ability: Effective Telemarketing Supervisor Required: No Beliefs That Will Affect Care: None Current Living Situation: Alone Feels Safe at Home: Yes Assistive Devices: None Allergies Allergies Allergy/AdvReac Type Severity Reaction Status Date / Time No Known Allergies Allergy Unverified 02/06/24 20:38 Home Meds Home Medications Medication Instructions Recorded Confirmed empagliflozin 25 mg tablet 25 mg PO DAILY 12/11/22 02/06/24 (Jardiance) metformin 1,000 mg tablet 1,000 mg PO BID 12/11/22 02/06/24 lisinopril 2.5 mg tablet 2.5 mg PO DAILY 02/06/24 02/06/24 rosuvastatin 10 mg tablet 10 mg PO DAILY 02/06/24 02/06/24 Previous Rx's Medication Instructions Recorded aspirin 81 mg tablet,delayed 81 mg PO QAM #90 tabs 12/12/22 release Results & Data (ED) Vital Signs Vital Signs - 24 hr 02/06/24 15:33 02/06/24 16:41 02/06/24 16:41 Temperature 36.7 C Temperature Source Temporal Artery Scan Pulse Rate 71 Pulse Rate [Apical] 62 Pulse Rate from SpO2 Sensor Respiratory Rate 20 15 Respiratory Effort / Characteristics Non-Labored Spontaneous Non-Labored Spontaneous Respiratory Depth Normal Normal Respiratory Pattern Regular Blood Pressure 152/87 H Blood Pressure [Right Arm] 115/73 Blood Pressure Mean 108 Blood Pressure Mean [Right Arm] 87 Blood Pressure Position [Right Arm] Lying Pulse Oximetry 97 94 95 Oxygen Delivery Method Room Air Room Air Room Air Sepsis Recent Fever Within 48 Hours No Sepsis New/Unexplained Change in Mental Status No Sepsis Action Taken by Nursing No Action Required 02/06/24 16:45 02/06/24 16:47 02/06/24 17:03 Temperature Temperature Source Pulse Rate 62 64 61 Pulse Rate [Apical] Pulse Rate from SpO2 Sensor 63 Respiratory Rate 19 18 Respiratory Effort / Characteristics Respiratory Depth Respiratory Pattern Blood Pressure Blood Pressure [Right Arm] Blood Pressure Mean Blood Pressure Mean [Right Arm] Blood Pressure Position [Right Arm] Pulse Oximetry 95 Oxygen Delivery Method Sepsis Recent Fever Within 48 Hours Sepsis New/Unexplained Change in Mental Status Sepsis Action Taken by Nursing 02/06/24 17:30 02/06/24 18:00 02/06/24 19:30 Temperature Temperature Source Pulse Rate 58 L 53 L 67 Pulse Rate [Apical] Pulse Rate from SpO2 Sensor 57 L 53 L Respiratory Rate 15 14 18 Respiratory Effort / Characteristics Respiratory Depth Respiratory Pattern Blood Pressure 161/86 H Blood Pressure [Right Arm] Blood Pressure Mean 111 Blood Pressure Mean [Right Arm] Blood Pressure Position [Right Arm] Pulse Oximetry 97 97 95 Oxygen Delivery Method Room Air Room Air Sepsis Recent Fever Within 48 Hours Sepsis New/Unexplained Change in Mental Status Sepsis Action Taken by Nursing 02/06/24 20:39 Temperature Temperature Source Pulse Rate 67 Pulse Rate [Apical] Pulse Rate from SpO2 Sensor Respiratory Rate Respiratory Effort / Characteristics Respiratory Depth Respiratory Pattern Blood Pressure Blood Pressure [Right Arm] Blood Pressure Mean Blood Pressure Mean [Right Arm] Blood Pressure Position [Right Arm] Pulse Oximetry Oxygen Delivery Method Sepsis Recent Fever Within 48 Hours Sepsis New/Unexplained Change in Mental Status Sepsis Action Taken by Residential Medications Current Medication List: was personally reviewed by me Laboratory Data Attestation: I reviewed the patient's lab results. 02/06/24 15:58 02/06/24 15:58 Lab Results 02/06/24 02/06/24 02/06/24 Range/Units 15:58 17:04 17:58 WBC 8.86 (4.8-10.8) K/ul RBC 5.07 (4.70-6.10) M/uL Hgb 15.5 (14.0-18.0) g/dl Hct 43.9 (42.0-52.0) % MCV 86.6 (80.0-100.0) fL MCH 30.6 (25.0-34.0) pg MCHC 35.3 (32.0-36.0) g/dL RDW Std Deviation 39.4 (36.4-46.3) fL RDW Coeff of Anjana 12.6 (11.5-14.5) % Plt Count 194 (130-400) K/uL MPV 10.1 (9.4-12.4) fL Immature Gran % (Auto) 0.1 % Neut % (Auto) 68.2 % Lymph % (Auto) 21.6 % Gray % (Auto) 7.3 % Eos % (Auto) 2.0 % Baso % (Auto) 0.8 % Neut # (Auto) 6.04 (1.40-6.50) K/uL Lymph # (Auto) 1.91 (1.20-3.40) K/uL Gray # (Auto) 0.65 H (0.11-0.59) K/uL Eos # (Auto) 0.18 (0.00-0.50) K/uL Baso # (Auto) 0.07 (0.00-0.20) K/uL Immature Gran # (Auto) 0.01 (0.01-0.20) K/uL PT 10.3 (9.0-12.0) Seconds INR 0.9 (0.9-1.1) APTT 27 (21-31) Seconds PTT Ratio 1.0 Sodium 135 L (136-145) mmol/L Potassium 4.0 (3.5-5.1) mmol/L Chloride 104 (98-107) mmol/L Carbon Dioxide 24 (21-32) mmol/L Anion Gap 7 (3-11) BUN 18 (6-23) mg/dl Creatinine 0.77 (0.6-1.4) mg/dl Est Cr Clr Drug Dosing 100.1 ml/min Est GFR ( Amer) 111.2 ml/min Est GFR (Non-Af Amer) 95.9 ml/min BUN/Creatinine Ratio 23.4 H (10-20) Glucose 146 H (70-99(Fasting)) mg/dl POC Glucose 131 H (70-99) mg/dl Calcium 9.7 (8.6-10.3) mg/dl Magnesium 2.3 (1.7-2.4) mg/dl Total Bilirubin 1.4 H (0.2-1.0) mg/dl AST 16 (13-39) U/L ALT 14 (7-52) U/L Alkaline Phosphatase 76 (34-104) U/L Troponin I High Sens < 2.3 (0-20) pg/ml Total Protein 7.6 (6.0-8.3) gm/dl Albumin 4.6 (3.4-5.0) gm/dl Globulin 3.0 (2.5-4.0) gm/dl Albumin/Globulin Ratio 1.5 (0.9-2) TSH 0.705 (0.300-4.500) uIu/ml Urine Color Yellow Urine Appearance Clear (Clear) Urine pH 5.5 (4.5-7.5) Ur Specific [place] > 1.045 H (1.000-1.030) Urine Protein Negative (Negative) Urine Glucose (UA) 3+ H (Negative) Urine Ketones 1+ H (Negative) Urine Blood Negative (Negative) Urine Nitrite Negative (Negative) Urine Bilirubin Negative (Negative) Urine Urobilinogen Negative (Negative) Ur Leukocyte Esterase Negative (Negative) Administered Medications Sodium Chloride (Nss) 1,000 mls @ 50 mls/hr IV .Q20H ONE Stop: 02/07/24 17:59 Last Admin: 02/06/24 22:25 Dose: 50 mls/hr Documented By: CORINNE Discontinued Medications Aspirin (Aspirin Chew 324 Mg) 324 mg PO NOW STA Stop: 02/06/24 20:54 Last Admin: 02/06/24 21:09 Dose: 324 mg Documented By: CORINNE Gadobutrol (Gadobutrol 65ml Vial) 7.5 ml IV ONCE ONE Stop: 02/06/24 19:04 Last Admin: 02/06/24 19:03 Dose: 7.5 ml Documented By: ZACH Sodium Chloride (Nss) 1,000 mls @ 999 mls/hr IV .Q1H1M ONE Stop: 02/06/24 18:31 Last Infusion: 02/06/24 19:31 Dose: Infused Documented By: Admin: 02/06/24 17:55 Dose: 999 mls/hr Documented By: CORINNE Ioversol (Optiray 320 150ml) 99 ml IV ONCE ONE Stop: 02/06/24 17:01 Last Admin: 02/06/24 17:01 Dose: 99 ml Documented By: ABIMAEL Imaging Data Radiologist's Impression: Head CT 02/06/24 15:35 CT angio neck with con, CT head/brain wo con, CT angio head w con CLINICAL HISTORY: dizziness, hx of TIA TECHNIQUE: Contiguous axial CT images of the head were acquired from the base of the skull to the vertex without intravenous contrast administration. CT angiography of the head and neck was performed following intravenous administration of iodinated contrast. Coronal and sagittal MIPS were obtained from the axial data set and were submitted for review. Automated dose lowering techniques and/or adjustment according to patient size were utilized for this examination. All measurements were calculated based on NASCET criteria. CT DOSE: 1113.63 mGy.cm Comparison: Comparison is made to CT head and neck 02/06/2024 FINDINGS: CT head: There is no acute intracranial hemorrhage or evidence of acute territorial infarction. No shift of the midline structures, mass effect, or extra-axial abnormalities are shown. Lungs and soft tissues are unremarkable. CTA Neck: A 3 vessel aortic arch is shown. Atherosclerotic plaque is present in the aortic arch and at the origin of the great vessels. Redemonstration of approximately 70% stenosis of the left vertebral artery. Right vertebral artery terminates as PICA. The left vertebral artery is dominant. CTA Head: The anterior and posterior cerebral circulations are patent. No hemodynamically significant stenosis, aneurysm, dissection, or arteriovenous malformation is shown. IMPRESSION: 1. No acute intracranial hemorrhage, evidence of acute territorial infarction, or other acute intracranial disease process. 2. Again noted is approximately 70% stenosis of the proximal V2 segment of the left vertebral. 3. No occlusion, hemodynamically significant stenosis, aneurysm, dissection, or arteriovenous malformation in the major intracranial arteries. Assessment of stenosis of the internal carotid arteries is based on NASCET criteria. ACT 112: Negative or not required by law. Electronically signed by: Rinku Diaz M.D. 02/06/2024 5:20 PM Head CTA 02/06/24 15:35 CT angio neck with con, CT head/brain wo con, CT angio head w con CLINICAL HISTORY: dizziness, hx of TIA TECHNIQUE: Contiguous axial CT images of the head were acquired from the base of the skull to the vertex without intravenous contrast administration. CT angiography of the head and neck was performed following intravenous administration of iodinated contrast. Coronal and sagittal MIPS were obtained from the axial data set and were submitted for review. Automated dose lowering techniques and/or adjustment according to patient size were utilized for this examination. All measurements were calculated based on NASCET criteria. CT DOSE: 1113.63 mGy.cm Comparison: Comparison is made to CT head and neck 02/06/2024 FINDINGS: CT head: There is no acute intracranial hemorrhage or evidence of acute territorial infarction. No shift of the midline structures, mass effect, or extra-axial abnormalities are shown. Lungs and soft tissues are unremarkable. CTA Neck: A 3 vessel aortic arch is shown. Atherosclerotic plaque is present in the aortic arch and at the origin of the great vessels. Redemonstration of approximately 70% stenosis of the left vertebral artery. Right vertebral artery terminates as PICA. The left vertebral artery is dominant. CTA Head: The anterior and posterior cerebral circulations are patent. No hemodynamically significant stenosis, aneurysm, dissection, or arteriovenous malformation is shown. IMPRESSION: 1. No acute intracranial hemorrhage, evidence of acute territorial infarction, or other acute intracranial disease process. 2. Again noted is approximately 70% stenosis of the proximal V2 segment of the left vertebral. 3. No occlusion, hemodynamically significant stenosis, aneurysm, dissection, or arteriovenous malformation in the major intracranial arteries. Assessment of stenosis of the internal carotid arteries is based on NASCET criteria. ACT 112: Negative or not required by law. Electronically signed by: Rinku Diaz M.D. 02/06/2024 5:20 PM Neck CTA 02/06/24 15:35 CT angio neck with con, CT head/brain wo con, CT angio head w con CLINICAL HISTORY: dizziness, hx of TIA TECHNIQUE: Contiguous axial CT images of the head were acquired from the base of the skull to the vertex without intravenous contrast administration. CT angiography of the head and neck was performed following intravenous administration of iodinated contrast. Coronal and sagittal MIPS were obtained from the axial data set and were submitted for review. Automated dose lowering techniques and/or adjustment according to patient size were utilized for this examination. All measurements were calculated based on NASCET criteria. CT DOSE: 1113.63 mGy.cm Comparison: Comparison is made to CT head and neck 02/06/2024 FINDINGS: CT head: There is no acute intracranial hemorrhage or evidence of acute territorial infarction. No shift of the midline structures, mass effect, or extra-axial abnormalities are shown. Lungs and soft tissues are unremarkable. CTA Neck: A 3 vessel aortic arch is shown. Atherosclerotic plaque is present in the aortic arch and at the origin of the great vessels. Redemonstration of approximately 70% stenosis of the left vertebral artery. Right vertebral artery terminates as PICA. The left vertebral artery is dominant. CTA Head: The anterior and posterior cerebral circulations are patent. No hemodynamically significant stenosis, aneurysm, dissection, or arteriovenous malformation is shown. IMPRESSION: 1. No acute intracranial hemorrhage, evidence of acute territorial infarction, or other acute intracranial disease process. 2. Again noted is approximately 70% stenosis of the proximal V2 segment of the left vertebral. 3. No occlusion, hemodynamically significant stenosis, aneurysm, dissection, or arteriovenous malformation in the major intracranial arteries. Assessment of stenosis of the internal carotid arteries is based on NASCET criteria. ACT 112: Negative or not required by law. Electronically signed by: Rinku Diaz M.D. 02/06/2024 5:20 PM Brain MRI 02/06/24 17:31 CR Exam(s): MRI HEAD W/WO Contrast IV Amt: 7.5cc gadavist EXAM: MR Head Without and With Intravenous Contrast CLINICAL HISTORY: Reason for exam: poss new stroke, hist of same. TECHNIQUE: Magnetic resonance images of the head/brain without and with intravenous contrast in multiple planes. CONTRAST: Patient received 7.5cc gadavist of IV contrast COMPARISON: CT head 02/06/24; MRI brain 12/11/22 FINDINGS: Brain: Diffusion restriction in the left anterior corpus callosum measuring 11 mm consistent with acute cerebral ischemia. No other foci of diffusion restriction. No hemorrhage or midline shift. No abnormal extra-axial fluid collection. Periventricular and deep cerebral white matter foci of FLAIR signal hyperintensity, most likely mild chronic small vessel ischemic change. No evidence of intracranial mass or abnormal enhancement. Ventricles: Unremarkable. No hydrocephalus. Bones/joints: Unremarkable. No acute fracture. Sinuses: Unremarkable as visualized. Mastoid air cells: Unremarkable as visualized. No mastoid effusion. Orbits: Unremarkable as visualized. IMPRESSION: Diffusion restriction in the left anterior corpus callosum measuring 11 mm consistent with acute cerebral ischemia. Communications: Call Doctor Stroke Electronically signed by: Pavel Jeong M.D. 02/06/24 20:24 PM Discharge Plan Visit Data Chief Complaint: Dizziness Stated Complaint: DIZZY ED Provider: Regis Garcia Discharge Problem: Left sided numbness, Dizziness, Acute CVA (cerebrovascular accident) Patient Disposition: Admitted As Inpatient Condition: Fair Forms Stand Alone Forms: [facility] Prescriptions Prescriptions: No Action metformin 1,000 mg tablet 1,000 mg PO BID Hold Instructions: Resume on 12/14/22. Jardiance 25 mg tablet 25 mg PO DAILY aspirin 81 mg Tablet,Delayed Release (Dr/Ec) 81 mg PO QAM Qty: 90 0RF lisinopril 2.5 mg tablet 2.5 mg PO DAILY rosuvastatin 10 mg tablet 10 mg PO DAILY Referrals Referrals: PCP,NO [Primary Care Provider] -
--- NOTE | 2024-02-06 17:53 | Electrocardiogram Report ---
Test Reason : Blood Pressure : / mmHG Vent. Rate : 068 BPM Atrial Rate : 068 BPM P-R Int : 178 ms QRS Dur : 088 ms QT Int : 380 ms P-R-T Axes : 037 013 052 degrees QTc Int : 404 ms Normal sinus rhythm When compared with ECG of 11-DEC-2022 09:34, No significant change was found Confirmed by Jones Cabrera ([id number]) on 02/06/2024 5:53:00 PM Referred By: Confirmed By:Rylan Cabrera
[2024-02-06] MEDS: SODIUM CHLORIDE 0.9% 1,000 ML IV ONE ×2 (17:55→22:25)
[2024-02-06 18:15] LABS: Appearance Urine Clear (Clear); Bilirubin Urine Negative (Negative); Blood Urine Negative (Negative); Color Urine Yellow; Glucose Urine UA 3+ (Negative); Ketones Urine 1+ (Negative); Leukocyte Esterase Urine Negative (Negative); Nitrite Urine Negative (Negative); Protein Urine Negative (Negative); Specific Gravity Urine > 1.045 (1.000-1.030); Urobilinogen Urine Negative (Negative); pH Urine 5.5 (4.5-7.5)
[2024-02-06] MEDS: GADOBUTROL 65ML VIAL IV ONE (19:03)
--- NOTE | 2024-02-06 20:25 | Magnetic Resonance Report ---
Exam(s): MRI HEAD W/WO Contrast IV Amt: 7.5cc gadavist EXAM: MR Head Without and With Intravenous Contrast CLINICAL HISTORY: Reason for exam: poss new stroke, hist of same. TECHNIQUE: Magnetic resonance images of the head/brain without and with intravenous contrast in multiple planes. CONTRAST: Patient received 7.5cc gadavist of IV contrast COMPARISON: CT head 02/06/24; MRI brain 12/11/22 FINDINGS: Brain: Diffusion restriction in the left anterior corpus callosum measuring 11 mm consistent with acute cerebral ischemia. No other foci of diffusion restriction. No hemorrhage or midline shift. No abnormal extra-axial fluid collection. Periventricular and deep cerebral white matter foci of FLAIR signal hyperintensity, most likely mild chronic small vessel ischemic change. No evidence of intracranial mass or abnormal enhancement. Ventricles: Unremarkable. No hydrocephalus. Bones/joints: Unremarkable. No acute fracture. Sinuses: Unremarkable as visualized. Mastoid air cells: Unremarkable as visualized. No mastoid effusion. Orbits: Unremarkable as visualized. IMPRESSION: Diffusion restriction in the left anterior corpus callosum measuring 11 mm consistent with acute cerebral ischemia. Communications: Call Doctor Stroke Electronically signed by: Pavel Jeong M.D. 02/06/24 20:24 PM
[2024-02-06] MEDS ORDERED: ASPIRIN 81 MG CHEW PO STA (20:53)
[2024-02-06] MEDS: ASPIRIN CHEW 324 MG PO STA (21:09)
--- NOTE | 2024-02-06 21:36 | History & Physical Report ---
Date of Service February 06, 2024 Assessment & Plan (1) Acute CVA (cerebrovascular accident): Plan: Recurrent CVA Erratic aspirin and statin noncompliance hypertension, elevated secondary to above hyperlipidemia, erratic statin compliance ascending aorta dilatation PFO from last year TTE DM2 on oral medications, well-controlled as of recent hemoglobin A1c of 6.03 March 2023 Medical telemetry Neurochecks Aspirin, Plavix, statin Rx Patient counseled regarding need for medication compliance. Update TTE Permissive hypertension for now Neurology consult Re: Recurrent CVA Update lipid profile and hemoglobin A1c ISS BG goal 1 10-1 40, carb count coverage DVT prophylaxis. Lovenox subcu Full code Patient partner requesting updates providers. Ms. Sintia Balderrama, contact #[phone]. Text document was generated using [employer] voice recognition software. It may contain grammatical or spelling errors. Kindly contact undersigned for clarification of any documentation item in question. History of Present Illness Chief Complaint: Left facial numbness Primary Care Provider: Dr. Amaro History obtained from patient, family, and records. Medical history significant for CVA, hypertension, hyperlipidemia, ascending aorta dilatation, PFO, DM2 on oral medications, GERD, history optic neuropathy as per records. Last confinement November 2022 for TIA presenting as transient left-sided facial numbness and left upper extremity numbness. No evidence of acute intra-Pathology, mild nonspecific white matter changes on brain MRI. Small PFO on TTE. Neurology recommended aspirin and statin on discharge. Outpatient brain MRI last December 2022 showed right parietal subacute infarct. Last week, patient noted mild numbness of the left face and left hand with some dizziness related to position change. Attributed by family to possible allergies and stress from moving to a new home. Patient admits to noncompliance with home aspirin Rx the last few weeks because he ran out. Erratic statin compliance because he forgets to take nighttime pills most of the time. Patient brought by partner to urgent care center. Patient directed to ER for further evaluation. 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, civil engineering assistant Allergies Allergy/AdvReac Type Severity Reaction Status Date / Time No Known Allergies Allergy Unverified 02/06/24 20:38 Home Medications Medication Instructions Recorded Confirmed Type empagliflozin 25 mg tablet 25 mg PO DAILY 12/11/22 02/06/24 History (Jardiance) metformin 1,000 mg tablet 1,000 mg PO BID 12/11/22 02/06/24 History aspirin 81 mg tablet,delayed 81 mg PO QAM #90 tabs 12/12/22 02/06/24 Rx release lisinopril 2.5 mg tablet 2.5 mg PO DAILY 02/06/24 02/06/24 History rosuvastatin 10 mg tablet 10 mg PO DAILY 02/06/24 02/06/24 History Past Med/Surg History Problem List (Updated 02/06/24 @ 22:55 by Regis Garcia MD) Acute CVA (cerebrovascular accident) (Acute) Dizziness (Acute) Left sided numbness (Acute) PFO (patent foramen ovale) Stroke-like symptom Hypertension (Acute) Ascending aorta dilatation HLD (hyperlipidemia) Allergic rhinitis DM II (diabetes mellitus, type II), controlled Brain TIA (Acute) Medical History Arm paresthesia, left Surgical History S/P repair of hydrocele Family History Other Cancer Heart disease Stroke Thyroid disorder Social History Smoking Status: Never smoker Hx Alcohol Use: Yes Alcohol type: beer Hx Substance Use: No Preferred Language: Occitan Communication Ability: Effective [employer]er Required: No Beliefs That Will Affect Care: None Current Living Situation: Spouse Feels Safe at Home: Yes Safety Concerns: Feels Safe At This Time Assistive Devices: None Review of Systems Review of Systems: As per HPI, all other systems reviewed and negative Physical Exam Physical Exam: GENERAL: Comfortable, pleasant, slightly anxious, no respiratory distress SKIN: Normal color, warm HEENT: Bespectacled, pink palpebral conjunctivae, no ptosis, dry buccal mucosa NECK : Supple, no tenderness CHEST : CTA, no tenderness HEART : RRR, no obvious murmurs ABDOMEN: Some distention, nontender EXTREMITIES : No LE swelling/tenderness, no other conspicuous deformities noted NEUROLOGIC : Coherent, no facial asymmetry, MMTs BUE/BLE 5/5, no other gross focality Results & Data Results & Data Vital Signs (Past 12 Hours) Vital Signs Temp Pulse Pulse Resp BP BP Pulse Ox 02/06/24 20:39 67 02/06/24 19:30 67 18 161/86 H 95 02/06/24 18:00 53 L 14 97 02/06/24 17:30 58 L 15 97 02/06/24 17:03 61 18 02/06/24 16:47 64 02/06/24 16:45 62 19 95 02/06/24 16:41 62 15 115/73 95 02/06/24 16:41 94 02/06/24 15:33 36.7 C 71 20 152/87 H 97 O2 Del Method 02/06/24 20:39 02/06/24 19:30 Room Air 02/06/24 18:00 Room Air 02/06/24 17:30 02/06/24 17:03 02/06/24 16:47 02/06/24 16:45 02/06/24 16:41 Room Air 02/06/24 16:41 Room Air 02/06/24 15:33 Room Air Laboratory Results Laboratory Results WBC 8.86 K/ul (4.8-10.8) 02/06/24 15:58 RBC 5.07 M/uL (4.70-6.10) 02/06/24 15:58 Hgb 15.5 g/dl (14.0-18.0) 02/06/24 15:58 Hct 43.9 % (42.0-52.0) 02/06/24 15:58 MCV 86.6 fL (80.0-100.0) 02/06/24 15:58 MCH 30.6 pg (25.0-34.0) 02/06/24 15:58 MCHC 35.3 g/dL (32.0-36.0) 02/06/24 15:58 RDW Std Deviation 39.4 fL (36.4-46.3) 02/06/24 15:58 RDW Coeff of Anjana 12.6 % (11.5-14.5) 02/06/24 15:58 Plt Count 194 K/uL (130-400) 02/06/24 15:58 MPV 10.1 fL (9.4-12.4) 02/06/24 15:58 Immature Gran % (Auto) 0.1 % 02/06/24 15:58 Neut % (Auto) 68.2 % 02/06/24 15:58 Lymph % (Auto) 21.6 % 02/06/24 15:58 Rice % (Auto) 7.3 % 02/06/24 15:58 Eos % (Auto) 2.0 % 02/06/24 15:58 Baso % (Auto) 0.8 % 02/06/24 15:58 Neut # (Auto) 6.04 K/uL (1.40-6.50) 02/06/24 15:58 Lymph # (Auto) 1.91 K/uL (1.20-3.40) 02/06/24 15:58 Rice # (Auto) 0.65 K/uL (0.11-0.59) H 02/06/24 15:58 Eos # (Auto) 0.18 K/uL (0.00-0.50) 02/06/24 15:58 Baso # (Auto) 0.07 K/uL (0.00-0.20) 02/06/24 15:58 Immature Gran # (Auto) 0.01 K/uL (0.01-0.20) 02/06/24 15:58 PT 10.3 Seconds (9.0-12.0) 02/06/24 15:58 INR 0.9 (0.9-1.1) 02/06/24 15:58 APTT 27 Seconds (21-31) 02/06/24 15:58 PTT Ratio 1.0 02/06/24 15:58 Sodium 135 mmol/L (136-145) L 02/06/24 15:58 Potassium 4.0 mmol/L (3.5-5.1) 02/06/24 15:58 Chloride 104 mmol/L (98-107) 02/06/24 15:58 Carbon Dioxide 24 mmol/L (21-32) 02/06/24 15:58 Anion Gap 7 (3-11) 02/06/24 15:58 BUN 18 mg/dl (6-23) 02/06/24 15:58 Creatinine 0.77 mg/dl (0.6-1.4) 02/06/24 15:58 Est Cr Clr Drug Dosing 100.1 ml/min 02/06/24 15:58 Est GFR ( Amer) 111.2 ml/min 02/06/24 15:58 Est GFR (Non-Af Amer) 95.9 ml/min 02/06/24 15:58 BUN/Creatinine Ratio 23.4 (10-20) H 02/06/24 15:58 Glucose 146 mg/dl (70-99(Fasting)) H 02/06/24 15:58 POC Glucose 131 mg/dl (70-99) H 02/06/24 17:04 Calcium 9.7 mg/dl (8.6-10.3) 02/06/24 15:58 Magnesium 2.3 mg/dl (1.7-2.4) 02/06/24 15:58 Total Bilirubin 1.4 mg/dl (0.2-1.0) H 02/06/24 15:58 AST 16 U/L (13-39) 02/06/24 15:58 ALT 14 U/L (7-52) 02/06/24 15:58 Alkaline Phosphatase 76 U/L (34-104) 02/06/24 15:58 Troponin I High Sens < 2.3 pg/ml (0-20) 02/06/24 15:58 Total Protein 7.6 gm/dl (6.0-8.3) 02/06/24 15:58 Albumin 4.6 gm/dl (3.4-5.0) 02/06/24 15:58 Globulin 3.0 gm/dl (2.5-4.0) 02/06/24 15:58 Albumin/Globulin Ratio 1.5 (0.9-2) 02/06/24 15:58 Urine Color Yellow 02/06/24 17:58 Urine Appearance Clear (Clear) 02/06/24 17:58 Urine pH 5.5 (4.5-7.5) 02/06/24 17:58 Ur Specific [place] > 1.045 (1.000-1.030) H 02/06/24 17:58 Urine Protein Negative (Negative) 02/06/24 17:58 Urine Glucose (UA) 3+ (Negative) H 02/06/24 17:58 Urine Ketones 1+ (Negative) H 02/06/24 17:58 Urine Blood Negative (Negative) 02/06/24 17:58 Urine Nitrite Negative (Negative) 02/06/24 17:58 Urine Bilirubin Negative (Negative) 02/06/24 17:58 Urine Urobilinogen Negative (Negative) 02/06/24 17:58 Ur Leukocyte Esterase Negative (Negative) 02/06/24 17:[address] 02/06/24 15:35 CT angio neck with con, CT head/brain wo con, CT angio head w con CLINICAL HISTORY: dizziness, hx of TIA TECHNIQUE: Contiguous axial CT images of the head were acquired from the base of the skull to the vertex without intravenous contrast administration. CT angiography of the head and neck was performed following intravenous administration of iodinated contrast. Coronal and sagittal MIPS were obtained from the axial data set and were submitted for review. Automated dose lowering techniques and/or adjustment according to patient size were utilized for this examination. All measurements were calculated based on NASCET criteria. CT DOSE: 1113.63 mGy.cm Comparison: Comparison is made to CT head and neck 02/06/2024 FINDINGS: CT head: There is no acute intracranial hemorrhage or evidence of acute territorial infarction. No shift of the midline structures, mass effect, or extra-axial abnormalities are shown. Lungs and soft tissues are unremarkable. CTA Neck: A 3 vessel aortic arch is shown. Atherosclerotic plaque is present in the aortic arch and at the origin of the great vessels. Redemonstration of approximately 70% stenosis of the left vertebral artery. Right vertebral artery terminates as PICA. The left vertebral artery is dominant. CTA Head: The anterior and posterior cerebral circulations are patent. No hemodynamically significant stenosis, aneurysm, dissection, or arteriovenous malformation is shown. IMPRESSION: 1. No acute intracranial hemorrhage, evidence of acute territorial infarction, or other acute intracranial disease process. 2. Again noted is approximately 70% stenosis of the proximal V2 segment of the left vertebral. 3. No occlusion, hemodynamically significant stenosis, aneurysm, dissection, or arteriovenous malformation in the major intracranial arteries. Assessment of stenosis of the internal carotid arteries is based on NASCET criteria. ACT 112: Negative or not required by law. Electronically signed by: Rinku Diaz M.D. 02/06/2024 5:20 PM Head CTA 02/06/24 15:35 CT angio neck with con, CT head/brain wo con, CT angio head w con CLINICAL HISTORY: dizziness, hx of TIA TECHNIQUE: Contiguous axial CT images of the head were acquired from the base of the skull to the vertex without intravenous contrast administration. CT angiography of the head and neck was performed following intravenous administration of iodinated contrast. Coronal and sagittal MIPS were obtained from the axial data set and were submitted for review. Automated dose lowering techniques and/or adjustment according to patient size were utilized for this examination. All measurements were calculated based on NASCET criteria. CT DOSE: 1113.63 mGy.cm Comparison: Comparison is made to CT head and neck 02/06/2024 FINDINGS: CT head: There is no acute intracranial hemorrhage or evidence of acute territorial infarction. No shift of the midline structures, mass effect, or extra-axial abnormalities are shown. Lungs and soft tissues are unremarkable. CTA Neck: A 3 vessel aortic arch is shown. Atherosclerotic plaque is present in the aortic arch and at the origin of the great vessels. Redemonstration of approximately 70% stenosis of the left vertebral artery. Right vertebral artery terminates as PICA. The left vertebral artery is dominant. CTA Head: The anterior and posterior cerebral circulations are patent. No hemodynamically significant stenosis, aneurysm, dissection, or arteriovenous malformation is shown. IMPRESSION: 1. No acute intracranial hemorrhage, evidence of acute territorial infarction, or other acute intracranial disease process. 2. Again noted is approximately 70% stenosis of the proximal V2 segment of the left vertebral. 3. No occlusion, hemodynamically significant stenosis, aneurysm, dissection, or arteriovenous malformation in the major intracranial arteries. Assessment of stenosis of the internal carotid arteries is based on NASCET criteria. ACT 112: Negative or not required by law. Electronically signed by: Rinku Diaz M.D. 02/06/2024 5:20 PM Neck CTA 02/06/24 15:35 CT angio neck with con, CT head/brain wo con, CT angio head w con CLINICAL HISTORY: dizziness, hx of TIA TECHNIQUE: Contiguous axial CT images of the head were acquired from the base of the skull to the vertex without intravenous contrast administration. CT angiography of the head and neck was performed following intravenous administration of iodinated contrast. Coronal and sagittal MIPS were obtained from the axial data set and were submitted for review. Automated dose lowering techniques and/or adjustment according to patient size were utilized for this examination. All measurements were calculated based on NASCET criteria. CT DOSE: 1113.63 mGy.cm Comparison: Comparison is made to CT head and neck 02/06/2024 FINDINGS: CT head: There is no acute intracranial hemorrhage or evidence of acute territorial infarction. No shift of the midline structures, mass effect, or extra-axial abnormalities are shown. Lungs and soft tissues are unremarkable. CTA Neck: A 3 vessel aortic arch is shown. Atherosclerotic plaque is present in the aortic arch and at the origin of the great vessels. Redemonstration of approximately 70% stenosis of the left vertebral artery. Right vertebral artery terminates as PICA. The left vertebral artery is dominant. CTA Head: The anterior and posterior cerebral circulations are patent. No hemodynamically significant stenosis, aneurysm, dissection, or arteriovenous malformation is shown. IMPRESSION: 1. No acute intracranial hemorrhage, evidence of acute territorial infarction, or other acute intracranial disease process. 2. Again noted is approximately 70% stenosis of the proximal V2 segment of the left vertebral. 3. No occlusion, hemodynamically significant stenosis, aneurysm, dissection, or arteriovenous malformation in the major intracranial arteries. Assessment of stenosis of the internal carotid arteries is based on NASCET criteria. ACT 112: Negative or not required by law. Electronically signed by: Rinku Diaz M.D. 02/06/2024 5:20 PM Brain MRI 02/06/24 17:31 CR Exam(s): MRI HEAD W/WO Contrast IV Amt: 7.5cc gadavist EXAM: MR Head Without and With Intravenous Contrast CLINICAL HISTORY: Reason for exam: poss new stroke, hist of same. TECHNIQUE: Magnetic resonance images of the head/brain without and with intravenous contrast in multiple planes. CONTRAST: Patient received 7.5cc gadavist of IV contrast COMPARISON: CT head 02/06/24; MRI brain 12/11/22 FINDINGS: Brain: Diffusion restriction in the left anterior corpus callosum measuring 11 mm consistent with acute cerebral ischemia. No other foci of diffusion restriction. No hemorrhage or midline shift. No abnormal extra-axial fluid collection. Periventricular and deep cerebral white matter foci of FLAIR signal hyperintensity, most likely mild chronic small vessel ischemic change. No evidence of intracranial mass or abnormal enhancement. Ventricles: Unremarkable. No hydrocephalus. Bones/joints: Unremarkable. No acute fracture. Sinuses: Unremarkable as visualized. Mastoid air cells: Unremarkable as visualized. No mastoid effusion. Orbits: Unremarkable as visualized. IMPRESSION: Diffusion restriction in the left anterior corpus callosum measuring 11 mm consistent with acute cerebral ischemia. Communications: Call Doctor Stroke Electronically signed by: Pavel Jeong M.D. 02/06/24 20:24 PM Diagnostic Findings EKG as per my interpretation :Rate 70, NSR, normal axis, no ischemia
[2024-02-06] MEDS ORDERED: LORazepam 0.5 MG TAB PO PRN (22:00)
[2024-02-06] MEDS ORDERED: ACETAMINOPHEN 325 MG TAB PO PRN ×2 (22:00→23:51)
[2024-02-06] MEDS ORDERED: oxyCODONE HCL IR 5 MG TAB (IMMEDIATE RELEASE) PO PRN (22:00)
[2024-02-06] MEDS ORDERED: PHARMACIST DISCHARGE MED REC CONSULT PRN (22:00)
[2024-02-06] MEDS ORDERED: PROMETHAZINE HCL 6.25 MG in SODIUM CHLORIDE 0.9% 50 ML IV PRN (22:00)
[2024-02-06 22:40] LABS: Thyroid Stimulating Hormone 0.705 uIu/ml (0.300-4.500)
[2024-02-06] MEDS: ROSUVASTATIN CALCIUM 10 MG TAB PO SCH (23:47)
[2024-02-06] MEDS ORDERED: DEXTROSE 50% 50 ML SYRINGE IV PRN (23:51)
[2024-02-06] MEDS ORDERED: GLUCOSE 10 TAB/TUBE PO PRN (23:51)
[2024-02-06] MEDS ORDERED: GLUCOSE 40% GEL 15 GM TUBE PO PRN (23:51)
[2024-02-06] MEDS ORDERED: CARBOHYDRATES FOR HYPOGLYCEMIA PO PRN (23:51)
[2024-02-06] MEDS ORDERED: GLUCAGON FOR INJ 1 MG VIAL SQ PRN (23:51)
[2024-02-07] MEDS: INSULIN ASPART PER UNIT CHARGE SC SCH (00:25)
[2024-02-07 04:30] LABS: Basophils # (auto) 0.07 K/uL (0.00-0.20); Basophils % (auto) 0.9 %; Eosinophils # (auto) 0.17 K/uL (0.00-0.50); Eosinophils % (auto) 2.2 %; Hematocrit (blood only) 42.5 % (42.0-52.0); Hemoglobin 14.5 g/dl (14.0-18.0); Immature Granulocytes # (auto) 0.02 K/uL (0.01-0.20); Immature Granulocytes % (auto) 0.3 %; Lymphocytes # (auto) 1.94 K/uL (1.20-3.40); Lymphocytes % (auto) 25.2 %; Mean Corpuscular Hemoglobin 29.7 pg (25.0-34.0); Mean Corpuscular Hgb Conc 34.1 g/dL (32.0-36.0); Mean Corpuscular Volume 87.1 fL (80.0-100.0); Monocytes % (auto) 7.8 %; Neutrophils # (auto) 4.89 K/uL (1.40-6.50); Neutrophils % (auto) 63.6 %; Platelet Count 174 K/uL (130-400); RDW Coefficient of Variation 12.4 % (11.5-14.5); RDW Standard Deviation 39.1 fL (36.4-46.3); Red Blood Count 4.88 M/uL (4.70-6.10); White Blood Count 7.69 K/ul (4.8-10.8)
[2024-02-07 04:45] LABS: BUN Creatinine Ratio 24.6 (10-20); Calcium 8.3 mg/dl (8.6-10.3); Chol HDL Ratio 3.7 (0-5); Creatinine Clr Calc Pharmacy 126.3 ml/min; Est GFR (African American) 122.3 ml/min; Est GFR (Non-African American) 105.5 ml/min; Potassium 3.9 mmol/L (3.5-5.1)
[2024-02-07] MEDS: CLOPIDOGREL BISULFATE 75 MG TAB PO STA (06:10)
[2024-02-07 07:00] LABS: Estimated Average Glucose 192 mg/dl; Hemoglobin A1C 8.3 % (4.5-5.6)
[2024-02-07] MEDS ORDERED: ASPIRIN 81 MG ECTAB PO SCH (09:00)
[2024-02-07] MEDS: ASPIRIN 81 MG ECTAB PO SCH (09:42)
[2024-02-07] MEDS: ENOXAPARIN INJ 40 MG/0.4 ML SYR SQ SCH (09:43)
[2024-02-07] MEDS: ROSUVASTATIN CALCIUM 10 MG TAB PO SCH (09:43)
--- NOTE | 2024-02-07 14:43 | Pharmacy Report ---
- Date of Service February 07, 2024 - Pharmacy CVA/TIA Medication Review Medications to Prevent Stroke handout has been added to the patients discharge packet. Antiplatelet(s) * Aspirin 81 mg PO daily and Plavix 75 mg PO daily Cholesterol * Rosuvastatin 10 mg PO daily. Not at high intensity statin dose but LDL = 85 mg/dl and patient has history of non-compliance DVT Prophylaxis * Enoxaparin SQ Therapeutic Anticoagulation * No history of Afib/Aflutter noted Type 2 Diabetes * Patient has T2DM and patient is prescribed empagliflozin
--- NOTE | 2024-02-07 16:12 | Hospitalist Progress Note ---
Date of Service February 07, 2024 Assessment & Plan (1) Acute CVA (cerebrovascular accident): Plan: Recurrent CVA inconsistent aspirin and statin Adherence Brain MRI: Diffusion restriction in the left anterior corpus callosum measuring 11 mm consistent with acute cerebral ischemia. CT angiogram head and neck: 1. No acute intracranial hemorrhage, evidence of acute territorial infarction, or other acute intracranial disease process. 2. Again noted is approximately 70% stenosis of the proximal V2 segment of the left vertebral. 3. No occlusion, hemodynamically significant stenosis, aneurysm, dissection, or arteriovenous malformation in the major intracranial arteries. Echocardiogram: Pending Plavix added to aspirin Crestor continued Consulted neurology PT and OT evaluation hypertension - Improving Monitor hyperlipidemia, erratic statin compliance ascending aorta dilatation PFO from last year TTE DM2 on oral medications, well-controlled as of recent hemoglobin A1c of 6.03 March 2023 -- A1c 8.3 Update lipid profile and hemoglobin A1c ISS BG goal 1 10-1 40, carb count coverage DVT prophylaxis. Lovenox subcu Full code Disposition Pending Lives at home with family Admission and Anticipated Discharge Date Admission Date: February 06, 2024 Subjective Follow-up for acute CVA, etc. Seen resting in bed, comfortable, not in distress States he feels fine overall Left facial numbness/tingling, left hand tingling sensation mostly resolving Dizziness also resolved No other new neurologic symptoms No chest pain, palpitations, dizziness, shortness of breath No other new symptoms Review of Systems Review of Systems: all noted and negative except for above Physical Exam Physical Exam: General- oriented x 3, not in distress, speaks in sentences with no effort or accessory muscle use Eyes- anicteric Neck- no JVD Lungs- clear breath sounds bilaterally, no rales/wheezes Heart- normal rate, regular rhythm; no murmurs Abdomen- normal bowel sounds, nondistended, soft, nontender Extremities- no pretibial edema, no calf tenderness Neuro- alert, oriented x 3; no gross focal neurologic deficits Skin- warm & dry Results & Data Results & Data Vital Signs (Past 12 Hours) Vital Signs Temp Pulse Pulse Resp BP BP Pulse Ox 02/07/24 10:24 02/07/24 09:00 71 17 140/83 96 02/07/24 08:09 64 14 96 02/07/24 07:06 61 13 95 02/07/24 07:04 63 02/07/24 06:30 36.7 C 64 15 125/74 97 02/07/24 05:00 57 L 16 132/79 95 Pulse Ox O2 Del Method O2 Flow Rate 02/07/24 10:24 95 0 02/07/24 09:00 02/07/24 08:09 02/07/24 07:06 02/07/24 07:04 02/07/24 06:30 Room Air 02/07/24 05:00 Room Air all noted and reviewed including below
--- NOTE | 2024-02-07 16:41 | Neurology Consultation ---
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 Episodes of dizziness might be attributed to vertebral stenosis in the setting of hypoperfusion. Plan Recommend aspirin 325 mg in addition to Plavix 75 mg plus atorvastatin 80 mg for 21 days. This could be de-escalated to aspirin 325 mg in addition to atorvastatin 80 mg afterwards. Recommend echocardiogram. Recommend a Zio patch upon discharge. Check lipid profile, hemoglobin A1c, TSH. Rule out underlying infections. Telehealth Consultation Telehealth Information Telehealth Information: I performed this visit using a real-time telehealth connection between my location and the patients location ([facility]). After connecting through interactive tele-video, patient was identified by name and date of and/or wristband check.Patient (or authorized healthcare bilingual inside sales representative) was informed that this was a telemedicine visit and it was being conducted confidentially over secure lines. My office door was closed and no one else was present in the room with me.Patient (or authorized healthcare bilingual inside sales representative) provided consent to proceed with the visit, expressed an understanding of privacy and security of the telemedicine visit, and gave permission to have a hospital bilingual inside sales representative in the room in order to assist with the visit and to conduct portions of the visit, as needed. I informed the patient (or authorized healthcare bilingual inside sales representative) that I reviewed their record and presented the opportunity for them to ask any questions regarding the visit today. The patient agreed to participate. History of Present Illness Reason for Consultation: Stroke Requesting Physician: Chaz Cai MD Attending Physician: Chaz Cai MD History of Present Illness Jerry Ahuja is a 64-year-old male patient with PMH of HTN, DM type II, HLP, ascending aortic dilatation, history of a stroke prior metastatic left- sided numbness in 2022. The patient presented to the hospital with recurrent episodes of dizziness whenever he is bending over to pick something from the floor, he thought this was related to allergies. But then he noticed that the left facial numbness and left arm numbness or present again. The patient has not been taking his aspirin or statin over the past several months. Is been taking the rest of his medications. He denies any visual changes denies any difficulties with gait or motor weakness. Admits to some word finding difficulty that is now improved. No recent illnesses. Allergies Allergy/AdvReac Type Severity Reaction Status Date / Time No Known Allergies Allergy Unverified 02/06/24 20:38 Home Medications Medication Instructions Recorded Confirmed Type empagliflozin 25 mg tablet 25 mg PO DAILY 12/11/22 02/06/24 History (Jardiance) metformin 1,000 mg tablet 1,000 mg PO BID 12/11/22 02/06/24 History aspirin 81 mg tablet,delayed 81 mg PO QAM #90 tabs 12/12/22 02/06/24 Rx release lisinopril 2.5 mg tablet 2.5 mg PO DAILY 02/06/24 02/06/24 History rosuvastatin 10 mg tablet 10 mg PO DAILY 02/06/24 02/06/24 History Patient History Medical History Arm paresthesia, left Surgical History S/P repair of hydrocele Family History Other Cancer Heart disease Stroke Thyroid disorder Social History Smoking Status: Never smoker Hx Alcohol Use: Yes Alcohol type: beer Hx Substance Use: No Preferred Language: Latvian Communication Ability: Effective 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 Beliefs That Will Affect Care: None Current Living Situation: Spouse Feels Safe at Home: Yes Safety Concerns: Feels Safe At This Time Assistive Devices: None Review of Systems Constitutional: Patient denies weight loss, fever, chills, and night sweats Eyes: Patient denies change in vision, tearing, pain, and redness ENT: Patient denies pain, bleeding, rhinorrhea, and dysphagia Cardiovascular: Patient denies chest pain, palpitation, dyspnea at rest, and dyspnea with exertion Respiratory: Patient denies shortness of breath, cough, wheezing, and productive cough GI: Patient denies reflux, pain, constipation, and diarrhea Skin: Patient denies rash, dryness, and itching Allergies/Immune System: Patient denies rhinorrhea, seasonal allergies, reaction to current MEDS, and joint swelling Endocrine: Patient denies weight loss, weight gain, temperature intolerance, and excessive thirst Neurological: All negative unless mentioned in the HPI Physical Exam General Constitutional: Appearance normally developed Head and face: normocephalic and atraumatic Eyes: no ptosis, no anisocoria, and no dysconjugate gaze Respiratory: normal effort Cardiovascular: regular rhythm and regular rate Abdomen: non distended Skin: no rashes, lesions, or ulcers noted Psychiatric: normal judgement and insight, normal mood, and normal affect NEUROLOGIC EXAMINATION: Mental Status:alert, oriented to time, place, person, normal recent memory, normal remote memory, normal attention span, normal concentration, normal language and normal fund of knowledge Cranial Nerves: CN 2 - no visual defect on confrontation and pupils round, equal, reactive to light CN 3, 4, 6 - extra-ocular movements intact and no nystagmus CN 5 - facial sensation intact CN 7 - no facial asymmetry CN 8 - intact hearing CN 9, 10 - palate symmetric, normal gag CN 11 - good shoulder shrug CN 12 - tongue midline MOTOR: Strength was at least antigravity throughout, Pronator drift was absent and There were no abnormal movements SENSATION:decreased sensation over the left face and left hand GAIT: stable, no ataxia and can perform tandem walking COORDINATION: no ataxia with finger to nose testing and heel to painter testing REFLEXES: cannot assess over telemedicine NIH Stroke Scale: 1a. Level of Consciousness: alert = 0 1b. LOC Questions: (month, age): both correct = 0 1c. LOC Commands (open and close eyes, make fist and let go using non-paretic hand): obeys both correctly = 0 2. Best Gaze (eyes open and patient follows examiner's finger or face): normal = 0 3. Visual (visual threat or finger counting in each quadrant): no loss = 0 4. Facial Palsy (show teeth, raise eye brows and squeeze eyes shut, or grimace symmetry in a comatose patient): normal = 0 5a. Motor Arm (extend arm (palms down) to 90 degrees and score drift/movement (10 seconds) - Left: no drift = 0 5b. Motor Arm: (extend arm (palms down) to 90 degrees and score drift/movement (10 seconds) - Right: no drift = 0 6a. Motor Leg (elevate leg 30 degrees and score drift/ movement (5 seconds) - Left: no drift = 0 6b. Motor Leg (elevate leg 30 degrees and score drift/ movement (5 seconds) - Right: no drift = 0 7. Limb Ataxia (finger to nose, heel down painter): absent = 0 8. Sensory (pin prick to face, arm, trunk and leg, compare side to side): normal = 1 9. Best Language: no aphasia = 0 10. Dysarthria (evaluate speech clarity by patient repeating listed words): normal articulation = 0 11. Extinction and Inattention: no neglect = 0 Total: 1 Results & Data Vital Signs (Past 12 Hours) Vital Signs Temp Pulse Pulse Resp BP BP Pulse Ox 02/07/24 10:24 02/07/24 09:00 71 17 140/83 96 02/07/24 08:09 64 14 96 02/07/24 07:06 61 13 95 02/07/24 07:04 63 02/07/24 06:30 36.7 C 64 15 125/74 97 02/07/24 05:00 57 L 16 132/79 95 Pulse Ox O2 Del Method O2 Flow Rate 02/07/24 10:24 95 0 02/07/24 09:00 02/07/24 08:09 02/07/24 07:06 02/07/24 07:04 02/07/24 06:30 Room Air 02/07/24 05:00 Room Air Laboratory Results Laboratory Results - last 24 hr 02/06/24 02/06/24 02/06/24 15:58 17:04 17:58 WBC RBC Hgb Hct MCV MCH MCHC RDW Std Deviation RDW Coeff of Anjana Plt Count MPV Immature Gran % (Auto) Neut % (Auto) Lymph % (Auto) [place] % (Auto) Eos % (Auto) Baso % (Auto) Neut # (Auto) Lymph # (Auto) [place] # (Auto) Eos # (Auto) Baso # (Auto) Immature Gran # (Auto) Sodium Potassium Chloride Carbon Dioxide Anion Gap BUN Creatinine Est Cr Clr Drug Dosing Est GFR ( Amer) Est GFR (Non-Af Amer) BUN/Creatinine Ratio Glucose POC Glucose 131 H Estimat Average Glucose Hemoglobin A1c Calcium Triglycerides Cholesterol LDL Cholesterol, Calc VLDL Cholesterol, Calc HDL Cholesterol Cholesterol/HDL Ratio TSH 0.705 Urine Color Yellow Urine Appearance Clear Urine pH 5.5 Ur Specific [place] > 1.045 H Urine Protein Negative Urine Glucose (UA) 3+ H Urine Ketones 1+ H Urine Blood Negative Urine Nitrite Negative Urine Bilirubin Negative Urine Urobilinogen Negative Ur Leukocyte Esterase Negative 02/06/24 02/07/24 02/07/24 23:57 04:16 08:18 WBC 7.69 RBC 4.88 Hgb 14.5 Hct 42.5 MCV 87.1 MCH 29.7 MCHC 34.1 RDW Std Deviation 39.1 RDW Coeff of Anjana 12.4 Plt Count 174 MPV 10.0 Immature Gran % (Auto) 0.3 Neut % (Auto) 63.6 Lymph % (Auto) 25.2 [place] % (Auto) 7.8 Eos % (Auto) 2.2 Baso % (Auto) 0.9 Neut # (Auto) 4.89 Lymph # (Auto) 1.94 [place] # (Auto) 0.60 H Eos # (Auto) 0.17 Baso # (Auto) 0.07 Immature Gran # (Auto) 0.02 Sodium 137 Potassium 3.9 Chloride 106 Carbon Dioxide 22 Anion Gap 9 BUN 15 Creatinine 0.61 Est Cr Clr Drug Dosing 126.3 Est GFR ( Amer) 122.3 Est GFR (Non-Af Amer) 105.5 BUN/Creatinine Ratio 24.6 H Glucose 92 POC Glucose 112 H 90 Estimat Average Glucose 192 Hemoglobin A1c 8.3 H Calcium 8.3 L Triglycerides 118 Cholesterol 150 LDL Cholesterol, Calc 85 VLDL Cholesterol, Calc 24 HDL Cholesterol 41 Cholesterol/HDL Ratio 3.7 TSH Urine Color Urine Appearance Urine pH Ur Specific [place] Urine Protein Urine Glucose (UA) Urine Ketones Urine Blood Urine Nitrite Urine Bilirubin Urine Urobilinogen Ur Leukocyte Esterase 02/07/24 12:14 WBC RBC Hgb Hct MCV MCH MCHC RDW Std Deviation RDW Coeff of Anjana Plt Count MPV Immature Gran % (Auto) Neut % (Auto) Lymph % (Auto) [place] % (Auto) Eos % (Auto) Baso % (Auto) Neut # (Auto) Lymph # (Auto) [place] # (Auto) Eos # (Auto) Baso # (Auto) Immature Gran # (Auto) Sodium Potassium Chloride Carbon Dioxide Anion Gap BUN Creatinine Est Cr Clr Drug Dosing Est GFR ( Amer) Est GFR (Non-Af Amer) BUN/Creatinine Ratio Glucose POC Glucose 137 H Estimat Average Glucose Hemoglobin A1c Calcium Triglycerides Cholesterol LDL Cholesterol, Calc VLDL Cholesterol, Calc HDL Cholesterol Cholesterol/HDL Ratio TSH Urine Color Urine Appearance Urine pH Ur Specific [place] Urine Protein Urine Glucose (UA) Urine Ketones Urine Blood Urine Nitrite Urine Bilirubin Urine Urobilinogen Ur Leukocyte Esterase Diagnostic Findings Head CT 02/06/24 15:35 CT angio neck with con, CT head/brain wo con, CT angio head w con CLINICAL HISTORY: dizziness, hx of TIA TECHNIQUE: Contiguous axial CT images of the head were acquired from the base of the skull to the vertex without intravenous contrast administration. CT angiography of the head and neck was performed following intravenous administration of iodinated contrast. Coronal and sagittal MIPS were obtained from the axial data set and were submitted for review. Automated dose lowering techniques and/or adjustment according to patient size were utilized for this examination. All measurements were calculated based on NASCET criteria. CT DOSE: 1113.63 mGy.cm Comparison: Comparison is made to CT head and neck 02/06/2024 FINDINGS: CT head: There is no acute intracranial hemorrhage or evidence of acute territorial infarction. No shift of the midline structures, mass effect, or extra-axial abnormalities are shown. Lungs and soft tissues are unremarkable. CTA Neck: A 3 vessel aortic arch is shown. Atherosclerotic plaque is present in the aortic arch and at the origin of the great vessels. Redemonstration of approximately 70% stenosis of the left vertebral artery. Right vertebral artery terminates as PICA. The left vertebral artery is dominant. CTA Head: The anterior and posterior cerebral circulations are patent. No hemodynamically significant stenosis, aneurysm, dissection, or arteriovenous malformation is shown. IMPRESSION: 1. No acute intracranial hemorrhage, evidence of acute territorial infarction, or other acute intracranial disease process. 2. Again noted is approximately 70% stenosis of the proximal V2 segment of the left vertebral. 3. No occlusion, hemodynamically significant stenosis, aneurysm, dissection, or arteriovenous malformation in the major intracranial arteries. Assessment of stenosis of the internal carotid arteries is based on NASCET criteria. ACT 112: Negative or not required by law. Electronically signed by: Rinku Diaz M.D. 02/06/2024 5:20 PM Head CTA 02/06/24 15:35 CT angio neck with con, CT head/brain wo con, CT angio head w con CLINICAL HISTORY: dizziness, hx of TIA TECHNIQUE: Contiguous axial CT images of the head were acquired from the base of the skull to the vertex without intravenous contrast administration. CT angiography of the head and neck was performed following intravenous administration of iodinated contrast. Coronal and sagittal MIPS were obtained from the axial data set and were submitted for review. Automated dose lowering techniques and/or adjustment according to patient size were utilized for this examination. All measurements were calculated based on NASCET criteria. CT DOSE: 1113.63 mGy.cm Comparison: Comparison is made to CT head and neck 02/06/2024 FINDINGS: CT head: There is no acute intracranial hemorrhage or evidence of acute terr itorial infarction. No shift of the midline structures, mass effect, or extra- axial abnormalities are shown. Lungs and soft tissues are unremarkable. CTA Neck: A 3 vessel aortic arch is shown. Atherosclerotic plaque is present in the aortic arch and at the origin of the great vessels. Redemonstration of approximately 70% stenosis of the left vertebral artery. Right vertebral artery terminates as PICA. The left vertebral artery is dominant. CTA Head: The anterior and posterior cerebral circulations are patent. No hemodynamically significant stenosis, aneurysm, dissection, or arteriovenous malformation is shown. IMPRESSION: 1. No acute intracranial hemorrhage, evidence of acute territorial infarction, or other acute intracranial disease process. 2. Again noted is approximately 70% stenosis of the proximal V2 segment of the left vertebral. 3. No occlusion, hemodynamically significant stenosis, aneurysm, dissection, or arteriovenous malformation in the major intracranial arteries. Assessment of stenosis of the internal carotid arteries is based on NASCET criteria. ACT 112: Negative or not required by law. Electronically signed by: Rinku Diaz M.D. 02/06/2024 5:20 PM Neck CTA 02/06/24 15:35 CT angio neck with con, CT head/brain wo con, CT angio head w con CLINICAL HISTORY: dizziness, hx of TIA TECHNIQUE: Contiguous axial CT images of the head were acquired from the base of the skull to the vertex without intravenous contrast administration. CT angiography of the head and neck was performed following intravenous admini stration of iodinated contrast. Coronal and sagittal MIPS were obtained from the axial data set and were submitted for review. Automated dose lowering techniques and/or adjustment according to patient size were utilized for this examination. All measurements were calculated based on NASCET criteria. CT DOSE: 1113.63 mGy.cm Comparison: Comparison is made to CT head and neck 02/06/2024 FINDINGS: CT head: There is no acute intracranial hemorrhage or evidence of acute territorial infarction. No shift of the midline structures, mass effect, or extra-axial abnormalities are shown. Lungs and soft tissues are unremarkable. CTA Neck: A 3 vessel aortic arch is shown. Atherosclerotic plaque is present in the aortic arch and at the origin of the great vessels. Redemonstration of approximately 70% stenosis of the left vertebral artery. Right vertebral artery terminates as PICA. The left vertebral artery is dominant. CTA Head: The anterior and posterior cerebral circulations are patent. No hemodynamically significant stenosis, aneurysm, dissection, or arteriovenous malformation is shown. IMPRESSION: 1. No acute intracranial hemorrhage, evidence of acute territorial infarction, or other acute intracranial disease process. 2. Again noted is approximately 70% stenosis of the proximal V2 segment of the left vertebral. 3. No occlusion, hemodynamically significant stenosis, aneurysm, dissection, or arteriovenous malformation in the major intracranial arteries. Assessment of stenosis of the internal carotid arteries is based on NASCET criteria. ACT 112: Negative or not required by law. Electronically signed by: Rinku Diaz M.D. 02/06/2024 5:20 PM Brain MRI 02/06/24 17:31 CR Exam(s): MRI HEAD W/WO Contrast IV Amt: 7.5cc gadavist EXAM: MR Head Without and With Intravenous Contrast CLINICAL HISTORY: Reason for exam: poss new stroke, hist of same. TECHNIQUE: Magnetic resonance images of the head/brain without and with intravenous contrast in multiple planes. CONTRAST: Patient received 7.5cc gadavist of IV contrast COMPARISON: CT head 02/06/24; MRI brain 12/11/22 FINDINGS: Brain: Diffusion restriction in the left anterior corpus callosum measuring 11 mm consistent with acute cerebral ischemia. No other foci of diffusion restriction. No hemorrhage or midline shift. No abnormal extra-axial fluid collection. Periventricular and deep cerebral white matter foci of FLAIR signal hyperintensity, most likely mild chronic small vessel ischemic change. No evidence of intracranial mass or abnormal enhancement. Ventricles: Unremarkable. No hydrocephalus. Bones/joints: Unremarkable. No acute fracture. Sinuses: Unremarkable as visualized. Mastoid air cells: Unremarkable as visualized. No mastoid effusion. Orbits: Unremarkable as visualized. IMPRESSION: Diffusion restriction in the left anterior corpus callosum measuring 11 mm consistent with acute cerebral ischemia. Communications: Call Doctor Stroke Electronically signed by: Pavel Jeong M.D. 02/06/24 20:24 PM Medications Administered Home Medications Medication Instructions Recorded Confirmed Last Taken empagliflozin 25 mg tablet 25 mg PO DAILY 12/11/22 02/06/24 02/06/24 (Jardiance) metformin 1,000 mg tablet 1,000 mg PO BID 12/11/22 02/06/24 02/06/24 aspirin 81 mg tablet,delayed 81 mg PO QAM #90 tabs 12/12/22 02/06/24 02/06/24 release lisinopril 2.5 mg tablet 2.5 mg PO DAILY 02/06/24 02/06/24 02/06/24 rosuvastatin 10 mg tablet 10 mg PO DAILY 02/06/24 02/06/24 02/06/24 Active Medications Generic Name Dose Route Start Last Admin Trade Name Janes PRN Reason Stop Dose Admin Aspirin 81 mg 02/07/24 09:00 02/07/24 09:42 Aspirin 81 Mg Ectab PO 03/08/24 08:59 81 mg QAM JAKE Administration Enoxaparin Sodium 40 mg 02/07/24 09:00 02/07/24 09:43 Enoxaparin Inj 40 Mg/0.4 Ml Syr SQ 03/08/24 08:59 40 mg QAM JAKE Administration Insulin Aspart 0 units 02/06/24 23:51 02/07/24 13:35 Insulin Aspart Per Unit Charge SC 03/07/24 23:50 5 units ACHS JAKE Administration Rosuvastatin Calcium 10 mg 02/07/24 09:00 02/07/24 09:43 Rosuvastatin Calcium 10 Mg Tab PO 03/08/24 08:59 10 mg DAILY JAKE Administration ECG Additional Comments: NSR
[2024-02-07] MEDS: ASPIRIN 81 MG ECTAB PO ONE (19:38)
--- OUTSIDE RECORDS SUMMARY | 2024-02-07 21:10 | External Medical Summary | Summary of Care ---
Author Name Unknown Organization [facility] [address] [place] [place] [address] Phone [phone] Care Team Providers Care Client Manager Name Role Phone Unavailable Primary Care Provider Unavailabl e Reason for Visit * Reason Comments Congestion Sinus Problem X's 2 weeks, mucous just turned green this week. Cough Sore Throat Scratchy throat Encounter Details Date Type Department Care Team (Late st Contact Info) Description 09/12/2023 11:40 AM EST Office Visit General Internal Medicine [facility] [address] [facility] [place] [address] Va Amaro MD [address] [facility] [place] [address] Acute non-recurrent frontal sinusitis*; Ascending aorta dilation (HCC); Seasonal allergic rhinitis due to pollen; Dyslipidemia, goal LDL below 100; Cerebrovascular disease, arteriosclerotic, post-stroke; HTN, goal below 140/90; Gastroesophageal reflux disease with esophagitis, unspecified whether hemorrhage; Type 2 diabetes mellitus without complication, without long-term current use of insulin (HCC); Type 2 diabetes mellitus with microalbuminuria, without long-term current use of insulin (HCC) Allergies Active Allergy Reactions Criticality Noted Date Comments No Known Drug Allergy 06/19/2004 documented as of this encounter (statuses as of 09/24/2023) Medications Medication Sig Dispensed Refills Start Date End Date Status Aspirin Low Dose 81 MG Oral Tablet Delayed Release Take 1 Tablet by mouth in the morning. In the morning.. 0 12/12/2022 Active Lisinopril 2.5 MG Oral Tablet (Prinivil)Indicatio ns:Microalbuminuria due to type 2 diabetes mellitus (HCC) Take 1 Tablet by mouth in the morning. 90 Tablet 3 03/19/2023 Active Rosuvastatin Calcium 20 MG Oral Tablet (Crestor)Indication s:Cerebrovascular disease, arteriosclerotic, post-stroke,Dyslipi demia, goal LDL below 70 Take 1 Tablet by mouth in the morning. 90 Tablet 3 03/19/2023 Active metFORMIN HCl 1000 MG Oral Tablet (Glucophage)Indicat ions:Overweight (BMI 25.0-29.9) take 1 tablet by mouth every morning and evening with meals 180 Tablet 3 03/23/2023 Active Jardiance 25 MG Oral Tablet (Empagliflozin)Josephine cations:Type 2 diabetes mellitus with microalbuminuria, without long-term current use of insulin (HCC),Type 2 diabetes mellitus with hyperglycemia, without long-term current use of insulin (HCC) take 1 tablet by mouth once daily 90 Tablet 3 03/23/2023 Active Amoxicillin 500 MG Oral Capsule (Amoxil)Indications :Acute non-recurrent frontal sinusitis Take 1 Capsule by mouth in the morning and 1 Capsule at noon and 1 Capsule before bedtime. Do all this for 7 days. 21 Capsule 0 09/12/2023 09/19/2023 documented as of this encounter (statuses as of 09/24/2023) Active Problems Problem Noted Date Diagnosed Date Type 2 diabetes mellitus wit h microalbuminuria, without long-term current use of insulin 09/12/2023 Microalbuminuria due to type 2 diabetes mellitus 03/19/2023 Cerebrovascular disease, arteriosclerotic, post- stroke 03/19/2023 Ascending aorta dilation 07/28/2020 Erectile dysfunction 07/12/2020 HTN, goal below 140/90 12/27/2016 Dyslipidemia, goal LDL below 100 12/27/2016 Type 2 diabetes mellitus wit hout complication, without long-term current use of insulin 01/16/2016 Optic neuropathy 04/07/2015 Allergic rhinitis due to pollen 04/07/2015 Reflux esophagitis 12/30/2008 documented as of this encounter (statuses as of 09/24/2023) Resolved Problems Problem Noted Date Diagnosed Date Resolved Date Elevated blood pressure, situational 12/30/2008 01/16/2016 Other allergic rhinitis 12/30/200803/26 Overview: ICD-10 update of inactive term BENIGN HYPERTENSION 02/26/2000 12/31/19 09 documented as of this encounter (statuses as of 09/24/2023) Immunizations Name Administration Dates Next Due COVID-19 mRNA, LNP-s, No Pre serve, 2-Dose Series (Pfizer) 12/23/2020,11/30/2020 TDAP (age 10 and older)(Boostrix) 05/30/2021 TDAP (age 11 and older)(Adacel) 12/14/2010 documented as of this encounter Social History Tobacco Use Types Packs/Day Years Used Date Smoking Tobacco: Never Smokeless Tobacco: Never Tobacco Cessation:Counseling Given: Not Answered Alcohol Use Standard Drinks/Week Comments Yes 13.3 (1 standard drink = 0.6 oz pure alcohol) 2 drinks a night PHQ-2 Answer Date Recorded PHQ-2 Score 0 10/21/2018 Sex and Gender Information Value Date Recorded Sex Assigned at Not on file Gender Identity Not on file Sexual Orientation Not on file Job Start Date Occupation Industry Not on file Not on file Not on file documented as of this encounter Last Filed Vital Signs Vital Sign Reading Time Taken Comments Blood Pressure 118/68 09/12/2023 11:34 AM EST Pulse 84 09/12/2023 11:34 AM EST Temperature 36.3 C (97.3 F) 09/12/2023 11:[address] Respiratory Rate - - Oxygen Saturation 99% 09/12/2023 11:34 AM EST Inhaled Oxygen Concentration - - Weight 76 kg (167 lb 9.6 oz) 09/12/2023 11:34 AM EST Height 177.8 cm (5' 10") 09/12/2023 11:34 AM EST Body Mass Index 24.05 09/12/2023 11:34 AM EST documented in this encounter Progress Notes * Va Amaro MD - 09/12/2023 11:38 AM EST Images from the original note were not included. History of Present Illness Jerry Casarez is a 63 year old male that presents for Congestion, Sinus Problem (X's 2 weeks, mucous just turned green this week. ), Cough, and Sore Throat (Scratchy throat) Sinus Problem This is a new problem. The current episode started 1 to 4 weeks ago (2 weeks). The problem has beengradually worsening since onset. There has been no fever. Associated symptoms include coughing and shortness of breath. Pertinent negatives include no chills. Past treatments include oral decongestants. The treatment provided no relief. Cough This is a new problem. The current episode started 1 to 4 weeks ago (Two weeks). The problem has been gradually worsening. The cough is Productive of purulent sputum. Associated symptoms include nasal congestion, postnasal drip and shortness of breath. Pertinent negatives include no chills or fever. He has tried OTC cough suppressant for the symptoms. The treatment provided no relief. There is nohistory of asthma. Physical Exam Vitals: 09/12/23 1134 Temp: 36.3 C (97.3 F) Pulse: 84 SpO2: 99% BP: 118/68 BMI: 24.05 Physical Exam Constitutional: General: He is not in acute distress. Appearance: Normal appearance. HENT: Head: Normocephalic. Right Ear: Ear canal and external ear normal. Left Ear: Ear canal and external ear normal. Nose: Congestion and rhinorrhea present. Mouth/Throat: Mouth: Mucous membranes are moist. Pharynx: Posterior oropharyngeal erythema present. No oropharyngeal exudate. Cardiovascular: Rate and Rhythm: Normal rate and regular rhythm. Heart sounds: No murmur heard. No gallop. Pulmonary: Effort: Pulmonary effort is normal. Breath sounds: No stridor. No wheezing or rhonchi. Chest: Chest wall: No tenderness. Abdominal: General: There is no distension. Palpations: Abdomen is soft. There is no mass. Tenderness: There is no abdominal tenderness. Musculoskeletal: General: No swelling or tenderness. Cervical back: No rigidity or tenderness. Lymphadenopathy: Cervical: No cervical adenopathy. Neurological: Mental Status: He is alert. I have reviewed the following results: CMP Assessment and Plan Acute non-recurrent frontal sinusitis - Amoxicillin 500 MG Oral Capsule (Amoxil); Take 1 Capsule by mouth in the morning and 1 Capsule atnoon and 1 Capsule before bedtime. Do all this for 7 days. Ascending aorta dilation (HCC) Seasonal allergic rhinitis due to pollen Dyslipidemia, goal LDL below 100 Cerebrovascular disease, arteriosclerotic, post-stroke HTN, goal below 140/90 Gastroesophageal reflux disease with esophagitis, unspecified whether hemorrhage Type 2 diabetes mellitus without complication, without long-term current use of insulin (HCC) Type 2 diabetes mellitus with microalbuminuria, without long-term current use of insulin (HCC) Wrap-Up Time: I spent a total of 20-29 minutes (exact time 24 mins) on the date of service in preparation, delivery, and documentation of the care provided to Jerry Casarez excluding any time spent in the performance of separately billed services. documented in this encounter Nursing Notes * Sarita Torres LPN - 09/12/2023 11:33 AM EST Chief Complaint Patient presents with Congestion Sinus Problem X's 2 weeks, mucous just turned green this week. Cough Sore Throat Scratchy throat documented in this encounter Plan of Treatment Upcoming Encounters Date Type Department Care Team (Late st Contact Info) Description 12/19/2023 11:40 AM EDT Office Visit General Internal Medicine [facility] [address] [facility] [place] [address] Va Amaro MD [address] [facility] [place] [address] Health Maintenance Due Date Last Done Comments Pneumococcal Vaccine: Pediatrics (0 to 5 Years) and At-Risk Patients (6 to 64 Years) (1 - PCV) 01/20/1966 Colonoscopy 01/20/2005 Fecal Occult Blood Test 01/20/2005 Sigmoidoscopy 01/20/2005 Zoster Vaccines (1 of 2) 01/20/2010 Depression Screening 10/21/2019 10/21/2018 Hepatitis B (1 of 3 - Risk 3-dose series) 2020 Diabetic Foot Exam 05/30/2022 05/30/2021, 1 09/11/2019, 05/05/2019, Additional history exists COVID-19 Vaccine (3 - season) 2023 12/23/2020, 11/30/2020 Influenza Vaccine (FLU shot) (#1) 2023 HbA1c 09/14/2023 03/14/2023, 11/24, 07/17/2021, Additional history exists Diabetic Eye Exam 12/19/2023 12/18/2022, , 06/23/2019, Additional history exists Albumin/Creatinine Ratio 03/14/2024 023, 07/17/2021, 07/12/2020, Additional history exists B-12 03/14/2024 03/14/2023, 06/27, 05/30/2021, Additional history exists GFR 03/14/2024 03/14/2023, 11/24, 07/17/2021, Additional history exists Cologuard 08/03/2024 08/03/2021, 12/08/2020, 07/26/2021, Additional history exists Colorectal Cancer Screening 08/03/2024 DTaP,Tdap,and Td Vaccines (3 - Td or Tdap) 05/30/2031 05/30/2021, 12/14/2010, 02/26/2000 GARDASIL-HPV IMMUNIZATION SERIES Aged Out No longer eligible based on patient's age to complete this topic MENINGOCOCCAL (MENACTRA/MENVEO) Aged Out No longer eligible based on patient's age to complete this topic documented as of this encounter Medical Devices Not on filedocumented as of this encounter Visit Diagnoses Diagnosis Acute non-recurrent frontal sinusitis- Primary Ascending aorta dilation (HCC) Thoracic aortic ectasia Seasonal allergic rhinitis due to pollen Dyslipidemia, goal LDL below 100 Other and unspecified hyperlipidemia Cerebrovascular disease, arteriosclerotic, post-stroke Cerebral atherosclerosis HTN, goal below 140/90 Unspecified essential hypertension Gastroesophageal reflux disease with esophagitis, unspecified whether hemorrhage Type 2 diabetes mellitus without complication, without long-term current use of insulin (HCC) Type 2 diabetes mellitus with microalbuminuria, without long-term current use of insulin (HCC) documented in this encounter
--- OUTSIDE RECORDS SUMMARY | 2024-02-07 21:10 | External Medical Summary | Summary of Care ---
Author Name Unknown Organization [facility] Address [address] [place] [facility] [place] [facility] [place] [address] Phone [phone] Care Team Providers Care Sewing Machine Operator Zipper Name Role Phone Va Amaro MD Primary Care Provider [phone] Encounter Details Date Type Department Care Team (Late st Contact Info) Description 12/30/2023 Telephone General Internal Medicine [facility] [address] [facility] [place] [address] Va Amaro MD [address] [facility] [place] [address] Allergies Active Allergy Reactions Criticality Noted Date Comments No Known Drug Allergy 06/19/2004 documented as of this encounter (statuses as of 12/30/2023) Medications Medication Sig Dispensed Refills Start Date End Date Status Aspirin Low Dose 81 MG Oral Tablet Delayed Release Take 1 Tablet by mouth in the morning. In the morning.. 0 12/12/2022 Active Lisinopril 2.5 MG Oral Tablet (Prinivil)Indication s:Microalbuminuria due to type 2 diabetes mellitus (HCC) Take 1 Tablet by mouth in the morning. 90 Tablet 3 03/19/2023 Active metFORMIN HCl 1000 MG Oral Tablet (Glucophage)Indicati ons:Overweight (BMI 25.0-29.9) take 1 tablet by mouth every morning and evening with meals 180 Tablet 3 03/23/2023 Active Jardiance 25 MG Oral Tablet (Empagliflozin)Indic ations:Type 2 diabetes mellitus with microalbuminuria, without long-term current use of insulin (HCC),Type 2 diabetes mellitus with hyperglycemia, without long-term current use of insulin (HCC) take 1 tablet by mouth once daily 90 Tablet 3 03/23/2023 Active Rosuvastatin Calcium 20 MG Oral Tablet (Crestor)Indications :Cerebrovascular disease, arteriosclerotic, post-stroke,Dyslipid emia, goal LDL below 70 Take 1 Tablet by mouth in the morning. 90 Tablet 3 12/30/2023 Active documented as of this encounter (statuses as of 12/30/2023) Active Problems Problem Noted Date Diagnosed Date [...] as of this encounter (statuses as of 12/30/2023) Resolved Problems Problem Noted Date Diagnosed Date Resolved Date Elevated blood pressure, situational 12/30/2008 01/16/2016 Other allergic rhinitis 12/30/200803/26 Overview: ICD-10 update of inactive term BENIGN HYPERTENSION 02/26/2000 12/31/19 09 documented as of this encounter (statuses as of 12/30/2023) Immunizations Name Administration Dates Next Due COVID-19 mRNA, LNP-s, No Pre serve, 2-Dose Series (Pfizer) 12/23/2020,11/30/2020 TDAP (age 10 and older)(Boostrix) 05/30/2021 TDAP (age 11 and older)(Adacel) 12/14/2010 documented as of this encounter Social History Tobacco Use Types Packs/Day Years Used Date Smoking Tobacco: Never Smokeless Tobacco: Never Alcohol Use Standard Drinks/Week Comments Yes 13.3 [...] on file documented as of this encounter Plan of Treatment Upcoming Encounters Date Type Department Care Team (Late st Contact Info) Description 05/15/2024 10:20 AM EDT Office Visit General Internal Medicine [facility] [address] [place] [address] Va Amaro MD [address] [facility] [place] [address] Health Maintenance Due Date Last Done Comments Pneumococcal Vaccine: Pediatrics (0 to 5 Years) and At-Risk Patients (6 to 64 Years) (1 of 2 - PCV) 01/20/1966 Colonoscopy 01/20/2005 Fecal Occult Blood Test 01/20/2005 Sigmoidoscopy 01/20/2005 Zoster Vaccines (1 of 2) 01/20/2010 Depression Screening 10/21/2019 10/21/2018 Diabetic Foot Exam 05/30/2022 05/30/2021, 1 09/11/2019, 05/05/2019, Additional history exists COVID-19 Vaccine ( season) 2023 12/23/2020, 11/30/2020 HbA1c 09/14/2023 03/14/2023, 11/24, 07/17/2021, Additional history exists Diabetic Eye Exam 12/19/2023 12/18/2022, , 06/23/2019, Additional history exists Albumin/Creatinine Ratio 03/14/2024 023, 07/17/2021, 07/12/2020, Additional history exists B-12 03/14/2024 03/14/2023, 06/27, 05/30/2021, Additional history exists GFR 03/14/2024 03/14/2023, 11/24, 07/17/2021, Additional history exists Influenza Vaccine (FLU shot) (Season Ended) 2024 Cologuard 08/03/2024 08/03/2021, 12/0 08/2020, 07/26/2021, Additional history exists Colorectal Cancer Screening 08/03/2024 DTaP,Tdap,and Td Vaccines (3 - Td or Tdap) 05/30/2031 05/30/2021, 12/14/2010, 02/26/2000 GARDASIL-HPV IMMUNIZATION SERIES Aged Out No longer eligible based on patient's age to complete this topic Hepatitis B Aged Out No longer eligi ble based on patient's age to complete this topic MENINGOCOCCAL (MENACTRA/MENVEO) Aged Out No longer eligible based on patient's age to complete this topic documented as of this encounter Medical Devices Not on filedocumented as of this encounter Care Teams Sewing Machine Operator Zipper Relationship Specialty Start Date End Date Va Amaro MD [address] [place] [address] PCP - General Internal Medicine 12/11/23 documented as of this encounter
--- OUTSIDE RECORDS SUMMARY | 2024-02-07 21:10 | External Medical Summary | Summary of Care ---
Author Name Unknown Organization [facility] Address [address] [place] [place] [place] [address] Phone [phone] Care Team Providers Care Executive Administrative Asst Name Role Phone Va Amaor MD Primary Care Provider [phone] Reason for Visit * Reason Onset Date Comments Medication Refill 12/27/2023 Encounter Details Date Type Department Care Team (Late st Contact Info) Description 12/27/2023 Refill General Internal Medicine [facility] [address] [facility] [place] [address] Va Amaro MD 200 [place] [address] Cerebrovascular disease, arteriosclerotic, post-stroke; Dyslipidemia, goal LDL below 70 Allergies Active Allergy Reactions Criticality Noted Date Comments No Known Drug Allergy 06/19/2004 documented as of this encounter (statuses as of 12/30/2023) Medications Medication Sig Dispensed Refills Start Date End Date Status Aspirin Low Dose 81 MG Oral Tablet Delayed Release Take 1 Tablet by mouth in the morning. In the morning.. 0 12/12/2022 Active Lisinopril 2.5 MG Oral Tablet (Prinivil)Indicat ions:Microalbumin uria due to type 2 diabetes mellitus (HCC) Take 1 Tablet by mouth in the morning. 90 Tablet 3 03/19/2023 Active metFORMIN HCl 1000 MG Oral Tablet (Glucophage)Indic ations:Overweight (BMI 25.0-29.9) take 1 tablet by mouth every morning and evening with meals 180 Tablet 3 03/23/2023 Active Jardiance 25 MG Oral Tablet (Empagliflozin)In dications:Type 2 diabetes mellitus with microalbuminuria, without long-term current use of insulin (HCC),Type 2 diabetes mellitus with hyperglycemia, without long-term current use of insulin (HCC) take 1 tablet by mouth once daily 90 Tablet 3 03/23/2023 Active Rosuvastatin Calcium 20 MG Oral Tablet (Crestor)Indicati ons:Cerebrovascul ar disease, arteriosclerotic, post-stroke,Dysli pidemia, goal LDL below 70 Take 1 Tablet by mouth in the morning. 90 Tablet 3 12/30/2023 Active Rosuvastatin Calcium 20 MG Oral Tablet (Crestor)Indicati ons:Cerebrovascul ar disease, arteriosclerotic, post-stroke,Dysli pidemia, goal LDL below 70 Take 1 Tablet by mouth in the morning. 90 Tablet 3 03/19/2023 12/27/2023 Discontinued (Refill) documented as of this encounter (statuses as [...] on file documented as of this encounter Miscellaneous Notes * Telephone Encounter - Saul Ojeda MD - 12/30/2023 12:42 PM EDT Signed Prescriptions: Disp Refills Rosuvastatin Calcium 20 MG Oral Tablet (Cr*90 Tab*3 Sig: Take 1 Tablet by mouth in the morning. Authorizing Provider: SAUL OJEDA * Telephone Encounter - Juanito Sanchez, [employer] - 12/30/2023 10:55 AM EDTPending Prescriptions: Disp Refills Rosuvastatin Calcium 20 MG Oral Tablet (Cr*90 Tab*3 Sig: Take 1 Tablet by mouth in the morning. * Telephone Encounter - Juanito Sanchez MED ASSIST - 12/30/2023 10:54 AM EDT Review and sign if agreeable. * Telephone Encounter - Isa Brothers OSA - 12/27/2023 2:52 PM EDT Did you pend patient's preferred pharmacy and medication before forwarding?yes Pharmacy: [facility] [address] Pending Prescriptions: Disp Refills Rosuvastatin Calcium 20 MG Oral Tablet (C*90 Tab*3 Sig: Take 1 Tablet by mouth in the morning. Last Visit: 09/12/2023 (in office), Visit date not found (telemedicine) Next Visit: 05/15/2024 If no future appointments scheduled, and last appointment is greater than a year ago, please schedule patient for a follow-up appointment Last date the medication was ordered: 03.19.23 Is this request for a controlled substance?No Urine Drug Screen:No results found for this or any previous visit. Patient Phone Numbers Labs: Lab Results Component Value Date/Time CREAT 0.7 03/14/2023 08:24 AM CREAT 0.75 12/12/2022 12:00 AM CREAT 0.7 07/12/2020 09:41 AM POTASSIUM 4.4 03/14/2023 08:24 AM POTASSIUM 4.2 12/12/2022 12:00 AM POTASSIUM 4.9 07/12/2020 09:41 AM TSH 1.62 07/17/2021 08:40 AM TSH 1.05 07/12/2020 09:41 AM LDLCALC 83 03/14/2023 08:24 AM LDLCALC 82 12/12/2022 12:00 AM LDLCALC 115 07/12/2020 09:41 AM LDLDIRECT NOT APPLICABLE 07/12/2020 09:41 AM LDLDIRECT 102 01/16/2016 10:11 AM ALT 18 03/14/2023 08:24 AM ALT 17 07/12/2020 09:41 AM HGBA1C 6.9 (H) 03/14/2023 08:24 AM HGBA1C 7.8 (A) 12/12/2022 12:00 AM HGBA1C 7.8 (H) 07/12/2020 09:41 AM documented in this encounter Plan of Treatment Upcoming Encounters Date Type Department Care Team (Late st Contact Info) Description 05/15/2024 10:20 AM EDT Office Visit General Internal Medicine [facility] [place] [address] [place] [address] Va Amaro MD [address] [facility] [place] [address] Health Maintenance Due Date Last Done Comments [...] shot) (Season Ended) 2024 Cologuard 08/03/2024 08/03/2021, 08/2020, 07/26/2021, Additional history exists Colorectal Cancer [...] as of this encounter Visit Diagnoses Diagnosis Cerebrovascular disease, arteriosclerotic, post-stroke Cerebral atherosclerosis Dyslipidemia, goal LDL below 70 Other and unspecified hyperlipidemia documented in this encounter Care Teams Executive Administrative Asst Relationship Specialty Start Date End Date Va Amaro MD [address] [place] [address] PCP - General Internal Medicine 12/11/23 documented as of this encounter
--- OUTSIDE RECORDS SUMMARY | 2024-02-07 21:10 | External Medical Summary | Summary of Care ---
Author Name Unknown Organization [facility] Address [address] [place] [address] Phone [phone] Care Team Providers Care Computer Teacher Name Role Phone Dmitriy Amaro MD Primary Care Provider [phone] Reason for Visit * Reason Onset Date Comments Medication Refill 01/28/2024 Encounter Details Date Type Department Care Team (Late st Contact Info) Description 01/28/2024 Refill Family Practice [address] [facility] [place] [address] [place] [address] Sam Hdz DO [address] [place] [address] Cerebrovascular disease, arteriosclerotic, post-stroke; Dyslipidemia, goal LDL below 70 Allergies Active Allergy Reactions Criticality Noted Date Comments No Known Drug Allergy 06/19/2004 documented as of this encounter (statuses as of 01/28/2024) Medications Medication Sig Dispensed Refills Start Date End Date Status Aspirin Low Dose 81 MG Oral Tablet Delayed Release Take 1 Tablet by mouth in the morning. In the morning.. 12/12/2022 Active Lisinopril 2.5 MG Oral Tablet [...] mouth in the morning. 90 Tablet 3 01/28/2024 Active Rosuvastatin Calcium 20 MG Oral Tablet (Crestor)Indicati ons:Cerebrovascul ar disease, arteriosclerotic, post-stroke,Dysli pidemia, goal LDL below 70 Take 1 Tablet by mouth in the morning. 90 Tablet 3 12/30/2023 01/28/2024 Discontinued (Refill) documented as of this encounter (statuses as of 01/28/2024) Active Problems Problem Noted Date Diagnosed Date [...] as of this encounter (statuses as of 01/28/2024) Resolved Problems Problem Noted Date Diagnosed Date Resolved Date Elevated blood pressure, situational 12/30/2008 01/16/2016 Other allergic rhinitis 12/30/200803/26 Overview: ICD-10 update of inactive term BENIGN HYPERTENSION 02/26/2000 12/31/19 09 documented as of this encounter (statuses as of 01/28/2024) Immunizations Name Administration Dates Next Due COVID-19 mRNA, LNP-s, No Pre serve, 2-Dose Series (Pfizer) 12/23/2020,11/30/2020 TDAP (age 10 and older)(Boostrix) 05/30/2021 TDAP, Age 7 and older, IM (Adacel) 12/14/2010 documented as of this encounter Social [...] encounter Miscellaneous Notes * Telephone Encounter - Dmitriy Amaro MD - 01/28/2024 10:13 AM EDTSigned Prescriptions: Disp Refills Rosuvastatin Calcium 20 MG Oral Tablet (Cr*90 Tab*3 Sig: Take 1 Tablet by mouth in the morning. Authorizing Provider: DMITRIY AMARO * Telephone Encounter - Kate Cartagena LPN - 01/28/2024 9:20 AM EDTPending Prescriptions: Disp Refills Rosuvastatin Calcium 20 MG Oral Tablet (Cr*90 Tab*3 Sig: Take 1 Tablet by mouth in the morning. * Telephone Encounter - Isa Brothers OSA - 01/28/2024 9:14 AM EDT Did you pend patient's preferred pharmacy and medication before forwarding?yes Pharmacy: [facility] [id number] Pending Prescriptions: Disp Refills Rosuvastatin Calcium 20 MG Oral Tablet (C*90 Tab*3 Sig: Take 1 Tablet by mouth in the morning. Last Visit: Visit date not found (in office), Visit date not found (telemedicine) Next Visit: Visit date not found If no future appointments scheduled, and last appointment is greater than a year ago, please schedule patient for a follow-up appointment Last date the medication was ordered: 524 Is this request for a controlled substance?No [...] Medicine State [place]a Dodson [address] [place] [address] Dmitriy Amaro MD [address] [facility] [place] [address] Health Maintenance Due Date Last Done Comments Pneumococcal Vaccine: Pediatrics (0 to 5 Years) and At-Risk Patients (6 to 64 Years) (1 of 2 - PCV) 01/20/1966 Colonoscopy 01/20/2005 Fecal Occult Blood Test 01/20/2005 Sigmoidoscopy 01/20/2005 Zoster Vaccines (1 of 2) 01/20/2010 Depression Screening 10/21/2019 10/21/2018 Diabetic Foot Exam 05/30/2022 05/30/2021, 1 09/11/2019, 05/05/2019, Additional history exists COVID-19 Vaccine (2022- season) 2023 12/23/2020, 11/30/2020 HbA1c 09/14/2023 03/14/2023, [...] hyperlipidemia documented in this encounter Care Teams Computer Teacher Relationship Specialty Start Date End Date Dmitriy Amaro MD [address] [place] [address] PCP - General Internal Medicine 12/11/23 documented as of this encounter
[2024-02-08 06:43] LABS: Basophils # (auto) 0.06 K/uL (0.00-0.20); Basophils % (auto) 0.9 %; Eosinophils # (auto) 0.13 K/uL (0.00-0.50); Hematocrit (blood only) 40.6 % (42.0-52.0); Hemoglobin 14.2 g/dl (14.0-18.0); Immature Granulocytes # (auto) 0.03 K/uL (0.01-0.20); Immature Granulocytes % (auto) 0.5 %; Lymphocytes # (auto) 1.64 K/uL (1.20-3.40); Mean Corpuscular Volume 85.8 fL (80.0-100.0); Mean Platelet Volume 10.4 fL (9.4-12.4); Monocytes # (auto) 0.54 K/uL (0.11-0.59); Monocytes % (auto) 8.2 %; Neutrophils # (auto) 4.15 K/uL (1.40-6.50); Neutrophils % (auto) 63.4 %; Platelet Count 154 K/uL (130-400); RDW Coefficient of Variation 12.1 % (11.5-14.5); Red Blood Count 4.73 M/uL (4.70-6.10); White Blood Count 6.55 K/ul (4.8-10.8)
[2024-02-08 07:11] LABS: BUN Creatinine Ratio 22.6 (10-20); Calcium 8.5 mg/dl (8.6-10.3); Creatinine Clr Calc Pharmacy 124.3 ml/min; Est GFR (African American) 121.5 ml/min; Est GFR (Non-African American) 104.8 ml/min; Potassium 3.9 mmol/L (3.5-5.1)
[2024-02-08] MEDS: CLOPIDOGREL BISULFATE 75 MG TAB PO SCH (07:45)
[2024-02-08] MEDS: ATORVASTATIN 40 MG TAB PO SCH (08:15)
[2024-02-08] MEDS ORDERED: STROKE PATIENT DISCHARGE STA (09:26)
--- NOTE | 2024-02-08 15:37 | Discharge Summary ---
Discharge Summary Date of Service February 08, 2024 Principal Dx & Hospital Course #1 = Principal Diagnosis (1) Acute CVA (cerebrovascular accident): Recurrent CVA inconsistent adherence to aspirin and statin Brain MRI: Diffusion restriction in the left anterior corpus callosum measuring 11 mm consistent with acute cerebral ischemia. CT angiogram head and neck: 1. No acute intracranial hemorrhage, evidence of acute territorial infarction, or other acute intracranial disease process. 2. Again noted is approximately 70% stenosis of the proximal V2 segment of the left vertebral. 3. No occlusion, hemodynamically significant stenosis, aneurysm, dissection, or arteriovenous malformation in the major intracranial arteries. Echocardiogram: EF 60 to 65% Mild concentric LVH Aortic valve sclerosis moderate, without significant aortic valvular stenosis [facility] Neurology service consulted, Dr Zac Diez Recommendations: Recommend aspirin 325 mg in addition to Plavix 75 mg plus atorvastatin 80 mg for 21 days. This could be de-escalated to aspirin 325 mg in addition to atorvastatin 80 mg afterwards. (Will discharge on increased dose of rosuvastatin rosuvastatin 40 mg as patient intolerant of atorvastatin in the past) Recommend echocardiogram. (see above) Recommend a Zio patch upon discharge. Check lipid profile, hemoglobin A1c, TSH. Triglycerides 118 Cholesterol 115 LDL 85 VLDL 24 HDL 41 A1c 8.5 TSH 0.7 Patient's symptoms mostly resolved upon discharge Follow-up with PCP in 1 week, neurologist in 2 weeks Will need Zio patch monitor Crestor continued Consulted neurology PT and OT evaluation hypertension - Resume lisinopril hyperlipidemia - Management per above ascending aorta dilatation - Monitor closely as an outpatient PFO from last year TTE DM2 on oral medications, well-controlled as of recent hemoglobin A1c of 6.03 March 2023 -- A1c 8.5 further management and follow up as outpatient Notes For Next Care Provider Please arrange a Zio patch monitor placement Medication Changes From Visit Aspirin increased from 81, now 324 mg daily Plavix 70 mg p.o. daily x 3 weeks Crestor increased from 10, now 40 mg daily Pepcid twice daily as patient will be on high-dose aspirin Admission HPI Per Admitting Provider History obtained from patient, family, and records. Medical history significant for CVA, hypertension, hyperlipidemia, ascending aorta dilatation, PFO, DM2 on oral medications, GERD, history optic neuropathy as per records. Last confinement November 2022 for TIA presenting as transient left-sided facial numbness and left upper extremity numbness. No evidence of acute intra-Pathology, mild nonspecific white matter changes on brain MRI. Small PFO on TTE. Neurology recommended aspirin and statin on discharge. Outpatient brain MRI last December 2022 showed right parietal subacute infarct. Last week, patient noted mild numbness of the left face and left hand with some dizziness related to position change. Attributed by family to possible allergies and stress from moving to a new home. Patient admits to noncompliance with home aspirin Rx the last few weeks because he ran out. Erratic statin compliance because he forgets to take nighttime pills most of the time. Patient brought by partner to urgent care center. Patient directed to ER for further evaluation. 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, civil engineering specialist Admission Exam Per Admitting Provider GENERAL: Comfortable, pleasant, slightly anxious, no respiratory distress SKIN: Normal color, warm HEENT: Bespectacled, pink palpebral conjunctivae, no ptosis, dry buccal mucosa NECK : Supple, no tenderness CHEST : CTA, no tenderness HEART : RRR, no obvious murmurs ABDOMEN: Some distention, nontender EXTREMITIES : No LE swelling/tenderness, no other conspicuous deformities noted NEUROLOGIC : Coherent, no facial asymmetry, MMTs BUE/BLE 5/5, no other gross focality Discharge Exam General- oriented x 3, not in distress, speaks in sentences with no effort or accessory muscle use Eyes- anicteric Neck- no JVD Lungs- clear breath sounds bilaterally, no rales/wheezes Heart- normal rate, regular rhythm; no murmurs Abdomen- normal bowel sounds, nondistended, soft, nontender Extremities- no pretibial edema, no calf tenderness Neuro- alert, oriented x 3; no gross focal neurologic deficits Skin- warm & dry Updated Medication List Medication Instructions Recorded Confirmed Type empagliflozin 25 mg tablet 25 mg PO DAILY 12/11/22 02/06/24 History (Jardiance) metformin 1,000 mg tablet 1,000 mg PO BID 12/11/22 02/06/24 History lisinopril 2.5 mg tablet 2.5 mg PO DAILY 02/06/24 02/06/24 History aspirin 325 mg tablet,delayed 325 mg PO HS 30 days #30 tabs 02/08/24 Rx release (Ecotrin) clopidogrel 75 mg tablet 75 mg PO QAM 20 days #20 tabs 02/08/24 Rx famotidine 10 mg tablet 10 mg PO BID 30 days #60 tabs 02/08/24 Rx rosuvastatin 40 mg tablet (Crestor) 40 mg PO DAILY #30 tabs 02/08/24 Rx Hospital Stay Data Consultations 02/06/24 20:44 ED Decision to Admit Stat 02/06/24 23:51 Consult Neurology Routine Diagnostic Imagining Performed Laboratory Results WBC 6.55 K/ul (4.8-10.8) 02/08/24 05:26 RBC 4.73 M/uL (4.70-6.10) 02/08/24 05:26 Hgb 14.2 g/dl (14.0-18.0) 02/08/24 05:26 Hct 40.6 % (42.0-52.0) L 02/08/24 05:26 MCV 85.8 fL (80.0-100.0) 02/08/24 05:26 MCH 30.0 pg (25.0-34.0) 02/08/24 05:26 MCHC 35.0 g/dL (32.0-36.0) 02/08/24 05:26 RDW Std Deviation 38.0 fL (36.4-46.3) 02/08/24 05:26 RDW Coeff of Anjana 12.1 % (11.5-14.5) 02/08/24 05:26 Plt Count 154 K/uL (130-400) 02/08/24 05:26 MPV 10.4 fL (9.4-12.4) 02/08/24 05:26 Immature Gran % (Auto) 0.5 % 02/08/24 05:26 Neut % (Auto) 63.4 % 02/08/24 05:26 Lymph % (Auto) 25.0 % 02/08/24 05:26 [place]arro % (Auto) 8.2 % 02/08/24 05:26 Eos % (Auto) 2.0 % 02/08/24 05:26 Baso % (Auto) 0.9 % 02/08/24 05:26 Neut # (Auto) 4.15 K/uL (1.40-6.50) 02/08/24 05:26 Lymph # (Auto) 1.64 K/uL (1.20-3.40) 02/08/24 05:26 [place] # (Auto) 0.54 K/uL (0.11-0.59) 02/08/24 05:26 Eos # (Auto) 0.13 K/uL (0.00-0.50) 02/08/24 05:26 Baso # (Auto) 0.06 K/uL (0.00-0.20) 02/08/24 05:26 Immature Gran # (Auto) 0.03 K/uL (0.01-0.20) 02/08/24 05:26 PT 10.3 Seconds (9.0-12.0) 02/06/24 15:58 INR 0.9 (0.9-1.1) 02/06/24 15:58 APTT 27 Seconds (21-31) 02/06/24 15:58 PTT Ratio 1.0 02/06/24 15:58 Sodium 135 mmol/L (136-145) L 02/08/24 05:26 Potassium 3.9 mmol/L (3.5-5.1) 02/08/24 05:26 Chloride 103 mmol/L (98-107) 02/08/24 05:26 Carbon Dioxide 23 mmol/L (21-32) 02/08/24 05:26 Anion Gap 9 (3-11) 02/08/24 05:26 BUN 14 mg/dl (6-23) 02/08/24 05:26 Creatinine 0.62 mg/dl (0.6-1.4) 02/08/24 05:26 Est Cr Clr Drug Dosing 124.3 ml/min 02/08/24 05:26 Est GFR ( Amer) 121.5 ml/min 02/08/24 05:26 Est GFR (Non-Af Amer) 104.8 ml/min 02/08/24 05:26 BUN/Creatinine Ratio 22.6 (10-20) H 02/08/24 05:26 Glucose 102 mg/dl (70-99(Fasting)) H 02/08/24 05:26 POC Glucose 99 mg/dl (70-99) 02/08/24 07:56 Estimat Average Glucose 192 mg/dl 02/07/24 04:16 Hemoglobin A1c 8.3 % (4.5-5.6) H 02/07/24 04:16 Calcium 8.5 mg/dl (8.6-10.3) L 02/08/24 05:26 Magnesium 2.3 mg/dl (1.7-2.4) 02/06/24 15:58 Total Bilirubin 1.4 mg/dl (0.2-1.0) H 02/06/24 15:58 AST 16 U/L (13-39) 02/06/24 15:58 ALT 14 U/L (7-52) 02/06/24 15:58 Alkaline Phosphatase 76 U/L (34-104) 02/06/24 15:58 Troponin I High Sens < 2.3 pg/ml (0-20) 02/06/24 15:58 Total Protein 7.6 gm/dl (6.0-8.3) 02/06/24 15:58 Albumin 4.6 gm/dl (3.4-5.0) 02/06/24 15:58 Globulin 3.0 gm/dl (2.5-4.0) 02/06/24 15:58 Albumin/Globulin Ratio 1.5 (0.9-2) 02/06/24 15:58 Triglycerides 118 mg/dl (0-150) 02/07/24 04:16 Cholesterol 150 mg/dl (0-200) 02/07/24 04:16 LDL Cholesterol, Calc 85 mg/dl 02/07/24 04:16 VLDL Cholesterol, Calc 24 mg/dl (0-30) 02/07/24 04:16 HDL Cholesterol 41 mg/dl 02/07/24 04:16 Cholesterol/HDL Ratio 3.7 (0-5) 02/07/24 04:16 TSH 0.705 uIu/ml (0.300-4.500) 02/06/24 15:58 Urine Color Yellow 02/06/24 17:58 Urine Appearance Clear (Clear) 02/06/24 17:58 Urine pH 5.5 (4.5-7.5) 02/06/24 17:58 Ur Specific [place] > 1.045 (1.000-1.030) H 02/06/24 17:58 Urine Protein Negative (Negative) 02/06/24 17:58 Urine Glucose (UA) 3+ (Negative) H 02/06/24 17:58 Urine Ketones 1+ (Negative) H 02/06/24 17:58 Urine Blood Negative (Negative) 02/06/24 17:58 Urine Nitrite Negative (Negative) 02/06/24 17:58 Urine Bilirubin Negative (Negative) 02/06/24 17:58 Urine Urobilinogen Negative (Negative) 02/06/24 17:58 Ur Leukocyte Esterase Negative (Negative) 02/06/24 17:[address] 02/06/24 15:35 CT angio neck with con, CT head/brain wo con, CT angio head w con CLINICAL HISTORY: dizziness, hx of TIA TECHNIQUE: Contiguous axial CT images of the head were acquired from the base of the skull to the vertex without intravenous contrast administration. CT angiography of the head and neck was performed following intravenous administration of iodinated contrast. Coronal and sagittal MIPS were obtained from the axial data set and were submitted for review. Automated dose lowering techniques and/or adjustment according to patient size were utilized for this examination. All measurements were calculated based on NASCET criteria. CT DOSE: 1113.63 mGy.cm Comparison: Comparison is made to CT head and neck 02/06/2024 FINDINGS: CT head: There is no acute intracranial hemorrhage or evidence of acute territorial infarction. No shift of the midline structures, mass effect, or extra-axial abnormalities are shown. Lungs and soft tissues are unremarkable. CTA Neck: A 3 vessel aortic arch is shown. Atherosclerotic plaque is present in the aortic arch and at the origin of the great vessels. Redemonstration of approximately 70% stenosis of the left vertebral artery. Right vertebral artery terminates as PICA. The left vertebral artery is dominant. CTA Head: The anterior and posterior cerebral circulations are patent. No hemodynamically significant stenosis, aneurysm, dissection, or arteriovenous malformation is shown. IMPRESSION: 1. No acute intracranial hemorrhage, evidence of acute territorial infarction, or other acute intracranial disease process. 2. Again noted is approximately 70% stenosis of the proximal V2 segment of the left vertebral. 3. No occlusion, hemodynamically significant stenosis, aneurysm, dissection, or arteriovenous malformation in the major intracranial arteries. Assessment of stenosis of the internal carotid arteries is based on NASCET criteria. ACT 112: Negative or not required by law. Electronically signed by: Rinku Diaz M.D. 02/06/2024 5:20 PM Head CTA 02/06/24 15:35 CT angio neck with con, CT head/brain wo con, CT angio head w con CLINICAL HISTORY: dizziness, hx of TIA TECHNIQUE: Contiguous axial CT images of the head were acquired from the base of the skull to the vertex without intravenous contrast administration. CT angiography of the head and neck was performed following intravenous administration of iodinated contrast. Coronal and sagittal MIPS were obtained from the axial data set and were submitted for review. Automated dose lowering techniques and/or adjustment according to patient size were utilized for this examination. All measurements were calculated based on NASCET criteria. CT DOSE: 1113.63 mGy.cm Comparison: Comparison is made to CT head and neck 02/06/2024 FINDINGS: CT head: There is no acute intracranial hemorrhage or evidence of acute territorial infarction. No shift of the midline structures, mass effect, or extra-axial abnormalities are shown. Lungs and soft tissues are unremarkable. CTA Neck: A 3 vessel aortic arch is shown. Atherosclerotic plaque is present in the aortic arch and at the origin of the great vessels. Redemonstration of approximately 70% stenosis of the left vertebral artery. Right vertebral artery terminates as PICA. The left vertebral artery is dominant. CTA Head: The anterior and posterior cerebral circulations are patent. No hemodynamically significant stenosis, aneurysm, dissection, or arteriovenous malformation is shown. IMPRESSION: 1. No acute intracranial hemorrhage, evidence of acute territorial infarction, or other acute intracranial disease process. 2. Again noted is approximately 70% stenosis of the proximal V2 segment of the left vertebral. 3. No occlusion, hemodynamically significant stenosis, aneurysm, dissection, or arteriovenous malformation in the major intracranial arteries. Assessment of stenosis of the internal carotid arteries is based on NASCET criteria. ACT 112: Negative or not required by law. Electronically signed by: Rinku Diaz M.D. 02/06/2024 5:20 PM Neck CTA 02/06/24 15:35 CT angio neck with con, CT head/brain wo con, CT angio head w con CLINICAL HISTORY: dizziness, hx of TIA TECHNIQUE: Contiguous axial CT images of the head were acquired from the base of the skull to the vertex without intravenous contrast administration. CT angiography of the head and neck was performed following intravenous administration of iodinated contrast. Coronal and sagittal MIPS were obtained from the axial data set and were submitted for review. Automated dose lowering techniques and/or adjustment according to patient size were utilized for this examination. All measurements were calculated based on NASCET criteria. CT DOSE: 1113.63 mGy.cm Comparison: Comparison is made to CT head and neck 02/06/2024 FINDINGS: CT head: There is no acute intracranial hemorrhage or evidence of acute territorial infarction. No shift of the midline structures, mass effect, or extra-axial abnormalities are shown. Lungs and soft tissues are unremarkable. CTA Neck: A 3 vessel aortic arch is shown. Atherosclerotic plaque is present in the aortic arch and at the origin of the great vessels. Redemonstration of approximately 70% stenosis of the left vertebral artery. Right vertebral artery terminates as PICA. The left vertebral artery is dominant. CTA Head: The anterior and posterior cerebral circulations are patent. No hemod ynamically significant stenosis, aneurysm, dissection, or arteriovenous malformation is shown. IMPRESSION: 1. No acute intracranial hemorrhage, evidence of acute territorial infarction, or other acute intracranial disease process. 2. Again noted is approximately 70% stenosis of the proximal V2 segment of the left vertebral. 3. No occlusion, hemodynamically significant stenosis, aneurysm, dissection, or arteriovenous malformation in the major intracranial arteries. Assessment of stenosis of the internal carotid arteries is based on NASCET criteria. ACT 112: Negative or not required by law. Electronically signed by: Rinku Diaz M.D. 02/06/2024 5:20 PM Brain MRI 02/06/24 17:31 CR Exam(s): MRI HEAD W/WO Contrast IV Amt: 7.5cc gadavist EXAM: MR Head Without and With Intravenous Contrast CLINICAL HISTORY: Reason for exam: poss new stroke, hist of same. TECHNIQUE: Magnetic resonance images of the head/brain without and with intravenous contrast in multiple planes. CONTRAST: Patient received 7.5cc gadavist of IV contrast COMPARISON: CT head 02/06/24; MRI brain 12/11/22 FINDINGS: Brain: Diffusion restriction in the left anterior corpus callosum measuring 11 mm consistent with acute cerebral ischemia. No other foci of diffusion restriction. No hemorrhage or midline shift. No abnormal extra-axial fluid collection. Periventricular and deep cerebral white matter foci of FLAIR signal hyperintensity, most likely mild chronic small vessel ischemic change. No evidence of intracranial mass or abnormal enhancement. Ventricles: Unremarkable. No hydrocephalus. Bones/joints: Unremarkable. No acute fracture. Sinuses: Unremarkable as visualized. Mastoid air cells: Unremarkable as visualized. No mastoid effusion. Orbits: Unremarkable as visualized. IMPRESSION: Diffusion restriction in the left anterior corpus callosum measuring 11 mm consistent with acute cerebral ischemia. Communications: Call Doctor Stroke Electronically signed by: Pavel Jeong M.D. 02/06/24 20:24 PM Pending Results Patient Have Any Pending Studies at Discharge: Yes Discharge Instructions Given to Patient (Per Discharging Provider) PLEASE REFER TO YOUR NEW MEDICATION LIST AND FOLLOW INSTRUCTIONS CAREFULLY. YOUR NEW MEDICATIONS INCLUDE: Increase aspirin to 324 mg daily-always take with a full stomach Take Plavix daily for 3 weeks Change rosuvastatin to atorvastatin 80 mg daily Take Pepcid twice a day to prevent stomach ulcers since you are going to be on high dose aspirin. You also need to have a reach lift truck driver called Zio patch placed. Your primary care physician will be able to arrange this for you. Call your primary care physician or return to the ER immediately if you are having any black or bloody stools, abdominal pain, etc. FOLLOW UP WITH PRIMARY CARE PHYSICIAN in 1 week. Follow-up with the neurologist in 2 weeks. [facility] will be calling you for the appointment schedule. Who to Call and When: Medical Emergencies: Call 911 immediately if you experience any of the following warning signs and symptoms of Stroke: Sudden numbness or weakness of the face, arm or leg, especially on one side of the body Sudden confusion, trouble speaking or understanding Sudden trouble seeing in one or both eyes Sudden trouble walking, dizziness, loss of balance or coordination Sudden severe headache with no cause Do not delay calling 911 if you experience any warning signs or symptoms of a stroke. Delay in seeking medical attention may affect what treatments can be given to you. Risk Factors for Stroke: You can reduce your chances of stroke by working with your medical provider to adopt a healthy lifestyle. Some specific ways to lower your chance of stroke are: If you are a smoker, now is the time to stop smoking cigarettes If you are diabetic, improve the control of your blood sugars Avoid excessive amounts of alcohol Control high blood pressure Lose weight if you are overweight Be sure to lead an active lifestyle Eat a healthy diet low in salt, cholesterol and fat You should know about other risk factors for stroke that you are unable to control. These include: Age 55 years or older Male gender Certain racial groups: , or / Family History of Stroke, Mini stroke or Heart Attack Sickle Cell Disease Follow Up: It is important for you to keep your follow up appointments with your medical provider. Total Time Total Time Spent Total Time Spent (In Minutes): 40 MINUTES
[2024-02-08] MEDS ORDERED: ASPIRIN 81 MG ECTAB PO SCH (21:00)
[2024-02-08] MEDS ORDERED: ASPIRIN 325 MG ECTAB PO SCH (21:00)
== END 2024-02-08 10:24 | disposition home or self-care (01) | DRG 65 ==
LOC: ED 15:22 → EDINP 21:37 → 2N 23:52